=== PATIENT | male | born 1950 | race Caucasian/White ===

== ENCOUNTER → 2021-03-26 09:04 | Outpatient (BNVA) | payer OTHER, SELFPAY | PROVIDERS: PCP Hospitalist; Visit Provider Hospitalist ==

== ENCOUNTER → 2021-07-24 08:30 | Outpatient (BNVA) | payer OTHER, SELFPAY | PROVIDERS: PCP Hospitalist; Visit Provider Hospitalist ==

== ENCOUNTER 2023-10-20 08:26 | Outpatient (AMB) | payer OTHER, SELFPAY ==
--- NOTE | 2023-10-20 08:30 | A.OFFVIS_ITS ---
Intake Vital Signs 10/20/23 08:31 Height 5 ft 9 in Weight 178 lb BMI 26.3 Pulse 59 Pulse Source Pulse Oximeter Pulse Oximetry (%) 95 Oxygen Delivery Method Room Air Intake Visit Reasons: Obstructive sleep apnea Allergies No Known Allergies Allergy (Verified 10/20/23 08:32) HPI HPI Comments History of Present Illness Details The patient is a 72-year-old gentleman with known chronic severe insomnia in addition to severe obstructive sleep apnea with retrognathia. The patient has been CPAP therapy for many years very good effect. His current mask appears to be effective although still leak some air on the nose. The CPAP therapy has been affecting beneficial he does use it for more than 4 hours a ni ght. He is struggling with his weight and also his sleep. He is currently being evaluated for medical weight management. He is concerned because the trazodone is making him gain weight. Is also not effective for sleep. He still staying awake for hours when he takes the trazodone when the true mg Lunesta. Prior, he was taking 4.5 mg Lunesta which appeared to be very effective for him. He denies any retrograde amnesia he has not had any problems with Lunesta that he is aware of. I did talk about his potential risks additional side effects in a did to potentials to the medication. However, he feels is the only medications that was helpful. We did also talk about other medications such as Belsomra which also be potential medications the. While taking the Lunesta the patient knows that needs to take medication holidays specially to avoid the potential side effects. 07/24/2021 the patient is here for rani farley follow-up visit. Unfortunately, his insurance did not cover the higher dose Lunesta. Therefore he went back to the 3 mg. In the meantime he has been having difficulties with his insomnia. He has been taking 100 mg of trazodone which is partially effective. He is willing to increase it to 150 mg at this time. I am hoping that the higher dose trazodone along with 3 mg of Lunesta will be effective in providing better sleep quality. In the meantime explained to him that the medications by the cells when at work well if he does not participate in sleep behavior therapy. Otherwise he continues uses CPAP therapy. The CPAP therapy continues to be affecting beneficial. He is getting supplies regularly. He does use CPAP more than 4 hours a night. Otherwise patient is without any other complaints. He has been very excited about losing weight. His primary care doctor is helping with medical weight management which has been very effective for him and also lessening the stress on his knee joints and also on the breathing. 07/17/2022 the patient is here for pulivy zaragoza follow-up visit. He continues to struggle with his sleep. He continues on the Lunesta 3 mg at nighttime and also on trazodone 150 mg. Still, he does not respond as well as when he was taking the higher dose Lunesta. We did talk about other agents such as Belsomra. But at this point the patient does not want to change especially since he has tried medications in the past without any significant improvement. He also has been taking sildenafil at nighttime. Feels like he has a hard time sleeping after using sildenafil. He is going to try just taking half a dose of sildenafil to minimize the adverse effect. The patient has been using CPAP at nighttime. He is using the nasal pillows, P 10 with good effect. He does not like the head gear although I do feel that this is going to be the smallest had year that he will tolerate. Therefore he will continue using this mask for now. We did talk about other alternatives for CPAP including oral mandibular device. However, he did have a mandibular device that resulted in loosening of teeth and ultimately have been to have been replaced. He does continue to uses CPAP in the CPAP therapy has been affecting beneficial. He does use it for more than 4 hours a night. 10/20/2023 the patient is here for a pul [facility] follow-up visit. The patient continues to have same complaints. Still having issues with sleep. He does respond partially to the Lunesta in the trazodone combination. He gets about 5- 7 hours of sleep. Although, he still wakes up drowsy in the morning. The patient has been using the CPAP. The CPAP therapy has been affecting beneficial and he does have a comfortable mask. He does get supplies from his [employer] company. The patient only complains of some andres left over by the head gear. But otherwise he tolerates it well. We did talk about considering stimulants during daytime she continues to have persistent daytime drowsiness. Although, it will result in additional polypharmacy for him. He is interested in just continuing to do what he is doing right now the seems to be providing him some relief. He is wondering about a travel CPAP. Explained to him that those are available but did not cover through insurance. I can not give her some ideas. [facility] Medical History (Updated 03/26/21 @ 21:12 by Warren Wolfe MD) JOSE on CPAP Insomnia Social History (Updated 07/24/21 @ 08:40 by SAMMIE Peña) Patient Tobacco Use Status: Never used Tobacco Review of Systems Const Reports daytime sleepiness, Reports difficulty sleeping and Denies night sweats ENT Denies change in voice, Denies lip swelling, Denies mouth pain, Reports nasal congestion, Reports nasal discharge and Denies tongue swelling Card Denies chest pain Resp Reports cough GI Denies abdominal pain Musc Denies no additional complaints Neuro Denies Neuro-related abnormal movements Psych Denies no additional complaints Radhames/Lymph Denies easy bleeding and Denies lymphadenopathy Aller/Immun Denies lip swelling and Denies tongue swelling Physical Exam Vital Signs: Last Vital Signs Pulse 59 10/20/23 08:31 Pulse Ox 95 10/20/23 08:31 Oxygen Delivery Method Room Air 10/20/23 08:31 BMI result Body Mass Index 26.3 Const General: alert Eyes Pupils: Equal, round and reactive pupils present Neck Neck: Yes normal visual inspection, Yes full ROM and Yes no lymphadenopathy Chest Chest palpation & inspection: normal inspection of the chest Resp Auscultation: clear to auscultation bilaterally Cardio Rate: regular rate Rhythm: regular rhythm Heart sounds: S1 normal heart sound present and S2 normal heart sound present GI Palpation (GI): Soft to palpation and nontender Auscultation: normal bowel sounds Skin General skin exam: rashes and/or lesions noted Neuro Cranial nerves: Yes Equal, round and reactive pupils present Assessment & Plan Assessment & Plan (1) Insomnia: Code(s): G47.00 - Insomnia, unspecified Qualifiers: Insomnia type: primary Qualified Code(s): F51.01 - Primary insomnia (2) JOSE on CPAP: Code(s): G47.33 - Obstructive sleep apnea (adult) (pediatric); Z99.89 - Dependence on other enabling machines and devices Plan Sleep behavioral therapy continue Trazodone 150mg QHS continue Lunesta 3mg QHS Continue CPAP therapy, DME is [facility] it Follow-up in 1 year sooner if he develops any worsening symptoms F/U 12 months Coding Level of Care Code Est Pt Level 4 (19601) Diagnoses Primary insomnia F51.01 Insomnia type: primary JOSE on CPAP G47.33; Z99.89 Time Spent (min) 17
[2023-10-20 08:31] VITALS: PULSE 59; O2SAT 95; BMI 26.3
== END 2023-10-20 08:50 | disposition home or self-care (01) ==
PROVIDERS: PCP Hospitalist; Visit Provider Hospitalist
DX: F51.01 Primary insomnia (principal); G47.33 Obstructive sleep apnea (adult) (pediatric); Z99.89 Dependence on other enabling machines and devices
CPT/HCPCS: 99214

== ENCOUNTER → 2023-10-20 08:26 | Outpatient (BNVA) | payer OTHER, SELFPAY | PROVIDERS: PCP Hospitalist; Visit Provider Hospitalist ==

== ENCOUNTER 2024-10-12 08:46 | Outpatient (AMB) | payer OTHER, SELFPAY ==
--- NOTE | 2024-10-12 08:49 | A.OFFVIS_ITS ---
Vital Signs 10/12/24 08:51 Height 5 ft 9 in Weight 185 lb 3.013 oz BMI 27.3 BP 128/68 Blood Pressure Location Rt brachial Position Sitting Pulse 68 Pulse Source Pulse Oximeter Pulse Oximetry (%) 97 Oxygen Delivery Method Room Air Intake Visit Reasons: Obstructive sleep apnea Dental Claims Processor Required: No Recyclable Materials Collector: Recyclable Materials Collector offered & declined Accompanied by: Self / Same As Patient Allergies No Known Allergies Allergy (Verified 10/12/24 08:55) Medication List - Last Reconciled 10/12/24 by Porsche eMlton LPN celecoxib 200 mg PO DAILY cyclosporine 0.05% 1 drp ophthalmic (eye) BID eszopiclone 3 mg PO BEDTIME 90 days fluticasone propionate 50 mcg/actuation 2 sprays intranasal BID latanoprost 0.005% 1 drp ophthalmic (eye) BEDTIME liraglutide (weight loss) mg subcut lisinopril 10 mg PO DAILY oxycodone-acetaminophen 5-325 mg 1 tab PO BID PRN pravastatin 80 mg PO DAILY sildenafil 100 mg PO DAILY PRN suvorexant (Belsomra) 20 mg PO BEDTIME 10 days tadalafil mg PO trazodone 150 mg (3 x 50 mg) PO BEDTIME HPI Comments Details: The patient is a 73-year-old gentleman with known chronic severe insomnia in addition to severe obstructive sleep apnea with retrognathia. The patient has been CPAP therapy for many years very good effect. His current mask appears to be effective although still leak some air on the nose. The CPAP therapy has been affecting beneficial he does use it for more than 4 hours a night. He is struggling with his weight and also his sleep. He is currently being evaluated for medical weight management. He is concerned because the trazodone is making him gain weight. Is also not effective for sleep. He still staying awake for hours when he takes the trazodone when the true mg Lunesta. Prior, he was taking 4.5 mg Lunesta which appeared to be very effective for him. He denies any retrograde amnesia he has not had any problems with Lunesta that he is aware of. I did talk about his potential risks additional side effects in a did to potentials to the medication. However, he feels is the only medications that was helpful. We did also talk about other medications such as Belsomra which also be potential medications the. While taking the Lunesta the patient knows that needs to take medication holidays specially to avoid the potential side effects. 07/24/2021 the patient is here for pulmonary follow-up visit. Unfortunately, his insurance did not cover the higher dose Lunesta. Therefore he went back to the 3 mg. In the meantime he has been having difficulties with his insomnia. He has been taking 100 mg of trazodone which is partially effective. He is willing to increase it to 150 mg at this time. I am hoping that the higher dose trazodone along with 3 mg of Lunesta will be effective in providing better sleep quality. In the meantime explained to him that the medications by the cells when at work well if he does not participate in sleep behavior therapy. Otherwise he continues uses CPAP therapy. The CPAP therapy continues to be affecting beneficial. He is getting supplies regularly. He does use CPAP more than 4 hours a night. Otherwise patient is without any other complaints. He has been very excited about losing weight. His primary care doctor is helping with medical weight management which has been very effective for him and also lessening the stress on his knee joints and also on the breathing. 07/17/2022 the patient is here for pulmonary follow-up visit. He continues to struggle with his sleep. He continues on the Lunesta 3 mg at nighttime and also on trazodone 150 mg. Still, he does not respond as well as when he was taking the higher dose Lunesta. We did talk about other agents such as Belsomra. But at this point the patient does not want to change especially since he has tried medications in the past without any significant improvement. He also has been taking sildenafil at nighttime. Feels like he has a hard time sleeping after using sildenafil. He is going to try just taking half a dose of sildenafil to minimize the adverse effect. The patient has been using CPAP at nighttime. He is using the nasal pillows, P 10 with good effect. He does not like the head gear although I do feel that this is going to be the smallest had year that he will tolerate. Therefore he will continue using this mask for now. We did talk about other alternatives for CPAP including oral mandibular device. However, he did have a mandibular device that resulted in loosening of teeth and ultimately have been to have been replaced. He does continue to uses CPAP in the CPAP therapy has been affecting beneficial. He does use it for more than 4 hours a night. 10/20/2023 the patient is here for a pulmonary follow-up visit. The patient continues to have same complaints. Still having issues with sleep. He does respond partially to the Lunesta in the trazodone combination. He gets about 5- 7 hours of sleep. Although, he still wakes up drowsy in the morning. The patient has been using the CPAP. The CPAP therapy has been affecting beneficial and he does have a comfortable mask. He does get supplies from his [employer] company. The patient only complains of some andres left over by the head gear. But otherwise he tolerates it well. We did talk about considering stimulants during daytime she continues to have persistent daytime drowsiness. Although, it will result in additional polypharmacy for him. He is interested in just continuing to do what he is doing right now the seems to be providing him some relief. He is wondering about a travel CPAP. Explained to him that those are available but did not cover through insurance. I can not give her some ideas. 10/12/2024 the patient is here for a pulmonary follow-up visit. Overall he continues to do about the same. He is using the CPAP every night. CPAP therapy has been affecting beneficial. He does use [facility]. He does use a fullface mask. He is getting irritation on his nose. However he does want to change mask right now. If he continues to get worse he can always call [facility] or come here and we can help him set up with a different mask setting. The patient also has been using sleep aids. Prior she was taking 4.5 mg of Lunesta were excellent for him. Denied any evidence of any retrograde amnesia or any adverse effects. Then was no longer covered and he has been on 3 mg of Lunesta and also added trazodone to try to help with the significant severe insomnia. The patient would like to go back on the 4.5. I will send it again to see if is covered but it may not be so. In the meantime he continues to do okay from a respiratory status. He is playing golf and is also doing his yd chores. He has not had any issues with respiratory complaints. No cough or shortness breath. He does not have any imaging on record. At this point will hold off since he is doing well but if he develops any respiratory symptoms he can always call we can get additional imaging at that time. [facility] Medical History (Updated 03/26/21 @ 21:12 by Warren Wolfe MD) JOSE on CPAP Insomnia Social History Patient Tobacco Use Status: Never used Tobacco Review of Systems Const Reports daytime sleepiness, Reports difficulty sleeping and Denies night sweats ENT Denies change in voice, Denies lip swelling, Denies mouth pain, Reports nasal congestion, Reports nasal discharge and Denies tongue swelling Card Denies chest pain Resp Reports cough GI Denies abdominal pain Musc Denies no additional complaints Neuro Denies Neuro-related abnormal movements Psych Denies no additional complaints Radhames/Lymph Denies easy bleeding and Denies lymphadenopathy Aller/Immun Denies lip swelling and Denies tongue swelling Physical Exam Vital Signs: Last Vital Signs Pulse 68 10/12/24 08:51 BP 128/68 10/12/24 08:51 Pulse Ox 97 10/12/24 08:51 Oxygen Delivery Method Room Air 10/12/24 08:51 BMI result Body Mass Index 27.3 Const General: alert Eyes Pupils: Equal, round and reactive pupils present Neck Neck: Yes normal visual inspection, Yes full ROM and Yes no lymphadenopathy Chest Chest palpation & inspection: normal inspection of the chest Resp Auscultation: clear to auscultation bilaterally Cardio Rate: regular rate Rhythm: regular rhythm Heart sounds: S1 normal heart sound present and S2 normal heart sound present GI Palpation (GI): Soft to palpation and nontender Auscultation: normal bowel sounds Skin General skin exam: rashes and/or lesions noted Neuro Cranial nerves: Yes Equal, round and reactive pupils present Assessment & Plan Assessment & Plan (1) Insomnia: Code(s): G47.00 - Insomnia, unspecified Category: Medical Qualifiers: Insomnia type: primary Qualified Code(s): F51.01 - Primary insomnia (2) JOSE on CPAP: Code(s): G47.33 - Obstructive sleep apnea (adult) (pediatric); Z99.89 - Dependence on other enabling machines and devices Category: Medical Plan Sleep behavioral therapy continue Trazodone 150mg QHS increase Lunesta 4.5mg QHS Continue CPAP therapy, DME is [facility] it Follow-up in 1 year sooner if he develops any worsening symptoms F/U 12 months Medications: New eszopiclone (Lunesta) 4.5 mg (1.5 x 3 mg) PO BEDTIME 135 tabs 0RF 90 days Coding Level of Care Code Est Pt Level 4 (40372) Diagnoses Primary insomnia F51.01 Insomnia type: primary JOSE on CPAP G47.33; Z99.89 Time Spent (min) 16
[2024-10-12 08:51] VITALS: BP 128/68; PULSE 68; O2SAT 97; BMI 27.3
== END 2024-10-12 09:15 | disposition home or self-care (01) ==
PROVIDERS: PCP Hospitalist; Visit Provider Hospitalist
DX: F51.01 Primary insomnia (principal); G47.33 Obstructive sleep apnea (adult) (pediatric); Z99.89 Dependence on other enabling machines and devices
CPT/HCPCS: 99214

== ENCOUNTER → 2024-10-12 08:46 | Outpatient (BNVA) | payer OTHER, SELFPAY | PROVIDERS: PCP Hospitalist; Visit Provider Hospitalist ==

== ENCOUNTER 2025-10-04 08:40 | Outpatient (AMB) | payer OTHER, SELFPAY ==
--- OUTSIDE RECORDS SUMMARY | 2025-08-09 03:30 | XMS_ITS ---
Author Organization [employer] [facility] Address [address] [place] [address] Care Team Providers Care Human Resources Associate Name Role Phone KANDI JUAREZ Primary Care Provider [phone] REASON FOR VISIT Shingles Medications Medication SIG (Take, Route, Frequency, Duration) Notes Start Date End Date Status oxyCODONE-Acetaminop hen 5-325 MG 1 tablet Dx: M54.17 Orally Twice a day; Duration: 28 days As needed Partial Fill upon Patient Request 08/05/2025 Active guaiFENesin AC 100-10 MG/5ML 10 mL as needed Orally every 8 hrs; Duration: 7 days 01/20/2024 Not-Taking Benzonatate 200 MG 1 capsule Orally Three times a day; Duration: 7 days 01/23/2024 Not-Taking Saxenda 18 MG/3ML inject 3 mg Subcutaneous once a day; Duration: 30 days Not-Taking Multivitamin - 1 tablet Orally Once a day (no iron) Active Narcan 4 MG/0.1ML PRN Overdose Nasally once; Duration: 30 days 04/16/2019 Not-Taking Vitamin B-1 100 MG 1 tablet Orally Once a day; Duration: 30 day(s) Not-Taking Vitamin B12 one daily Not-Taki ng Fluticasone Propionate 50 MCG/ACT 1 spray in each nostril Nasally Twice a day; Duration: 90 days Active BD Pen Needle Mini U/F 31G X 5 MM INJECT SAXENDA SUBCUTANEOUSLY EVERY DAY DIRECTED; Duration: 30 Not-Taking Lisinopril 10 MG TAKE 1 TABLET BY MOUTH EVERY DAY; Duration: 90 Active Celecoxib 200 MG 2 capsules with food Orally Once a day; Duration: 90 days Active Hydrocortisone 2.5 % 1 application Externally Once a day; Duration: 30 day(s) 09/02/2022 Active Pravastatin Sodium 80 MG TAKE 1 TABLET BY MOUTH EVERY DAY; Duration: 90 Active Magnesium 250 MG 1 capsule with a meal Active traZODone HCl 100 MG 1 tablet at bedtime Orally Once a day (along with a 50 mg tablet) Dr Wolfe Active Viagra 100 MG 1 tablet as needed Orally Once a day; Duration: 30 day(s) Active Vitamin D3 2000 UNIT 1 capsule Orally Once a day; Duration: 30 day(s) Active Restasis 0.05 % 1 drop into affected eye Ophthalmic Once a day Active Ecotrin Low Strength 81 MG 1 tablet Orally Once a day; Duration: 30 day(s) Active Pataday 0.2 % as directed Ophthalmic Active Latanoprost 0.005 % 1 drop into affected eye in the evening Ophthalmic Once a day Active Lansing 3 1200 MG 1 capsule Orally Once a day; Duration: 30 day(s) Active Co Q-10 200 MG 1 capsule with a meal Orally Once a day; Duration: 30 day(s) Active Eszopiclone 3 MG 1 tablet immediately before bedtime Orally Once a day Dr Wolfe Active Encounters Encounter Location Date Provider Diagnosis [address] [address] 08/09/2025 KNADI JUAREZ Plan Of Treatment Next Appt Details Provider Name:KANDI JUAREZ , 11/04/2025 09:00:00 AM, [address] [place] [address], [place], [address], Progress Notes * Justo TELLEZ WDOB:1950 (74 yo M)Acc No.[id number]:08/09/2025 Progress Note Patient: Justo WHITE Provider: Rocky JUAREZ MD :1950 A ge:74 Y S ex:Male Date:08/09/2025 Address:[address] [place] [id number] Subjective: * Chief Complaints: * 1 . Shingles. * Medical History: * Medications: T aking Multivitamin - Tablet 1 tablet Orally Once a day , Notes to Pharmacist: (no iron), Taking Co Q-10 200 MG Capsule 1 capsule with a meal Orally Once a day , Taking Eszopiclone 3 MG Tablet 1 tablet immediately before bedtime Orally Once a day , Notes to Pharmacist: Dr Wolfe, Taking Latanoprost 0.005 % Solution 1 drop into affected eye in the evening Ophthalmic Once a day , Taking Lansing 3 1200 MG Capsule 1 capsule Orally Once a day , Taking Pataday 0.2 % Solution as directed Ophthalmic , Taking Restasis 0.05 % Emulsion 1 drop into affected eye Ophthalmic Once a day , Taking Viagra 100 MG Tablet 1 tablet as needed Orally Once a day , Taking Vitamin D3 2000 UNIT Capsule 1 capsule Orally Once a day , Taking traZODone HCl 100 MG Tablet 1 tablet at bedtime Orally Once a day (along with a 50 mg tablet) , Notes to Pharmacist: Dr Wolfe, Taking Ecotrin Low Strength 81 MG Tablet Delayed Release 1 tablet Orally Once a day , Taking Magnesium 250 MG Tablet 1 capsule with a meal , Taking Hydrocortisone 2.5 % Ointment 1 application Externally Once a day , Taking Pravastatin Sodium 80 MG Tablet TAKE 1 TABLET BY MOUTH EVERY DAY , Taking Lisinopril 10 MG Tablet TAKE 1 TABLET BY MOUTH EVERY DAY , Taking Celecoxib 200 MG Capsule 2 capsules with food Orally Once a day , Taking Fluticasone Propionate 50 MCG/ACT Suspension 1 spray in each nostril Nasally Twice a day , Taking oxyCODONE-Acetaminophen 5-325 MG Tablet 1 tablet Dx: M54.17 Orally Twice a day As needed, Notes to Pharmacist: Partial Fill upon Patient Request, Not-Taking BD Pen Needle Mini U/F 31G X 5 MM Miscellaneous INJECT SAXENDA SUBCUTANEOUSLY EVERY DAY DIRECTED , Not-Taking Vitamin B-1 100 MG Tablet 1 tablet Orally Once a day , Not-Taking Vitamin B12 , Notes to Pharmacist: one daily, Not-Taking Narcan 4 MG/0.1ML Liquid PRN Overdose Nasally once , Not-Taking Saxenda 18 MG/3ML Solution Pen- injector inject 3 mg Subcutaneous once a day , Not-Taking guaiFENesin AC 100-10 MG/5ML Syrup 10 mL as needed Orally every 8 hrs , Not-Taking Benzonatate 200 MG Capsule 1 capsule Orally Three times a day Objective: * Vitals: Assessment: Plan: * Treatment: * Images: * Electronic signature of ANAMARIA JUAREZ MD on 10/04/2025 at 09:06 AM EST Sign off status: Pending * Provider: Rocky JUAREZ MD Date: 0 08/09/2025 Generated for Jairon belle/Jignesh/Agus on: 1 12/04/2024 09:06 AM EST
--- OUTSIDE RECORDS SUMMARY | 2025-09-29 05:30 | XMS_ITS ---
Author Organization [employer] Address [address] [place] [address] Care Team Providers [employer] Distributor Name Role Phone KANDI JUAREZ Primary Care Provider Virgil Moreira Unavailable [phone] Allergies Allergen (clinical drug ingredient) Drug/Non Drug Allergy documented on EMR Reaction Allergy Type Onset Date Status seasonal (uncoded) Unknown Allergy A ctive Results Component Value Reference Range Notes CBC With Differential/Platel et-[id number] Reviewed date:09/30/2025 09:08:34 AM Interpretation: Performing Lab:[facility], [address] [place] [address], [place], Phone - [phone], Director - Hang Notes/Report: WBC 8.8 3.4-10.8 x10E3/uL RBC 4.97 4.14-5.80 x10E6/uL Hemoglobin 14.8 13.0-17.7 g/dL Hematocrit 45.0 37.5-51.0 % MCV 91 79-97 fL MCH 29.8 26.6-33.0 pg MCHC 32.9 31.5-35.7 g/dL RDW 12.6 11.6-15.4 % Platelets 217 150-450 x10E3/uL Neutrophils 66 Not Estab. % Lymphs 22 Not Estab. % Monocytes 7 Not Estab. % Eos 3 Not Estab. % Basos 1 Not Estab. % Neutrophils (Absolute) 5.9 1.4-7.0 x10E3/uL Lymphs (Absolute) 2.0 0.7-3.1 x10E3/uL Monocytes(Absolute) 0.7 0.1-0.9 x10E3/uL Eos (Absolute) 0.2 0.0-0.4 x10E3/uL Baso (Absolute) 0.1 0.0-0.2 x10E3/uL Immature Granulocytes 1 Not Estab. % Immature Grans (Abs) 0.1 0.0-0.1 x10E3/uL Comp. Metabolic Panel [id number] Reviewed date:09/30/2025 09:08:21 AM Interpretation: Performing Lab:[facility], [address], [place], Phone - [phone], Director - Hang Notes/Report: Glucose 87 70-99 mg/dL BUN 20 8-27 mg/dL Creatinine 0.93 0.76-1.27 mg/dL eGFR 86 >59 mL/min/1.73 BUN/Creatinine Ratio 22 10-24 Sodium 140 134-144 mmol/L Potassium 4.0 3.5-5.2 mmol/L Chloride 100 96-106 mmol/L Carbon Dioxide, Total 24 20-29 mmol/L Calcium 9.4 8.6-10.2 mg/dL Protein, Total 7.3 6.0-8.5 g/dL Albumin 4.8 3.8-4.8 g/dL Globulin, Total 2.5 1.5-4.5 g/dL Bilirubin, Total 0.7 0.0-1.2 mg/dL Alkaline Phosphatase 58 47-123 IU/L AST (SGOT) 20 0-40 IU/L REASON FOR VISIT [facility] Total Knee Replacement 10/17/25 EKG/LABS Required Medications Medication SIG (Take, Route, Frequency, Duration) Notes Start Date End Date Status Viagra 100 MG 1 tablet as needed Orally Once a day; Duration: 30 day(s) Active Restasis 0.05 % 1 drop into affected eye Ophthalmic Once a day Active Pataday 0.2 % as directed Ophthalmic Active Campbell 3 1200 MG 1 capsule Orally Once a day; Duration: 30 day(s) Active Latanoprost 0.005 % 1 drop into affected eye in the evening Ophthalmic Once a day Active oxyCODONE-Acetaminop hen 5-325 MG 1 tablet Dx: M54.17 Orally 3 times a day; Duration: 28 days As needed Partial Fill upon Patient Request 09/29/2025 Active Eszopiclone 3 MG 1 tablet immediately before bedtime Orally Once a day Dr Wolfe Active Benzonatate 200 MG 1 capsule Orally Three times a day; Duration: 7 days 01/23/2024 Not-Taking Co Q-10 200 MG 1 capsule with a meal Orally Once a day; Duration: 30 day(s) Active Multivitamin - 1 tablet Orally Once a day (no iron) Active Vitamin B12 one daily Not-Taki ng Vitamin B-1 100 MG 1 tablet Orally Once a day; Duration: 30 day(s) Not-Taking guaiFENesin AC 100-10 MG/5ML 10 mL as needed Orally every 8 hrs; Duration: 7 days 01/20/2024 Not-Taking Saxenda 18 MG/3ML inject 3 mg Subcutaneous once a day; Duration: 30 days Not-Taking Narcan 4 MG/0.1ML PRN Overdose Nasally once; Duration: 30 days 04/16/2019 Not-Taking BD Pen Needle Mini U/F 31G X 5 MM INJECT SAXENDA SUBCUTANEOUSLY EVERY DAY DIRECTED; Duration: 30 Not-Taking Fluticasone Propionate 50 MCG/ACT 1 spray in each nostril Nasally Twice a day; Duration: 90 days Active Celecoxib 200 MG 2 capsules with food Orally Once a day; Duration: 90 days Active Lisinopril 10 MG TAKE 1 TABLET BY MOUTH EVERY DAY; Duration: 90 Active Pravastatin Sodium 80 MG TAKE 1 TABLET BY MOUTH EVERY DAY; Duration: 90 Active traZODone HCl 100 MG 1 tablet at bedtime Orally Once a day (along with a 50 mg tablet) Dr Wolfe Active Vitamin D3 2000 UNIT 1 capsule Orally Once a day; Duration: 30 day(s) Active Hydrocortisone 2.5 % 1 application Externally Once a day; Duration: 30 day(s) 09/02/2022 Active Magnesium 250 MG 1 capsule with a meal Active Ecotrin Low Strength 81 MG 1 tablet Orally Once a day; Duration: 30 day(s) Not-Taking Social History Tobacco Use: Social History Observation Description Date Details (start date - stop date) Never Smoker NA - NA Tobacco Use/Smoking Question Answer Notes Are you a nonsmoker Alcohol Screen (Audit-C) Question Answer Notes Did you have a drink contain ing alcohol in the past year? Yes How often did you have a dri nk containing alcohol in the past year? Monthly or less (1 point) How many drinks did you have on a typical day when you were drinking in the past year? 1 or 2 drinks (0 point) Points 1 Interpretation Negative Vital Signs Temperature 97.5 degrees Fahrenheit 09/29/20 25 Oximetry 95 % 09/29/2025 Heart Rate 72 /min 09/29/2025 Blood pressure systolic 130 mm Hg 09/29/20 25 Blood pressure diastolic 80 mm Hg 025 Weight 185.6 lbs 09/29/2025 BMI 27.41 kg/m2 09/29/2025 Height 69 in 09/29/2025 Encounters Encounter Location Date Provider Diagnosis [facility] [address] [facility] [facility] [address] [place] [address] 09/29/2025 Virgil Estradajocelinefavian Essential (primary) hypertension I10 ; Preoperative clearance Z01.818 ; Mixed hyperlipidemia E78.2 ; Obstructive sleep apnea (adult) (pediatric) G47.33 and Radiculopathy, lumbosacral region M54.17 Assessments Encounter Date Diagnosis (ICD Code) Assessment Notes Treatment Notes Treatment Clinical Notes Section Notes 09/29/2025 Essential (primary) hypertension (ICD-10 - I10) Mr. Tellez is a 74-year-old gentleman with hypertension, hyperlipidemia ,JOSE, chronic insomnia, glaucoma, multiple joint osteoarthritis and follows up with orthopedic for intra-articular injection, personal history of prostate cancer, allergic rhinitis/seasonal allergies is here today for Preop for left knee replacement at [facility] with Dr. Walton on October 17, 2025. Plan follow Cardiac assessment. Patient can easily do 4 METS. Blood pressure and exam is within normal limits. EKG is done in the office today with a heart rate of 65 bpm, sinus rhythm. No ST elevation or depression. No bundle branch block Pulmonary assessment. Lung exam is normal. No further Intervention He does have history of obstructive sleep apnea and he is on CPAP NPO on the day of surgery. Take your medications after the surgery. Hold NSAIDs and Campbell supplement 5 days before the procedure. Low risk procedure in a low risk patient. No contraindications for the procedure at this point in time Place in order for CBC and comp to be reviewed Hypertension/hyperl ipidemia. Blood pressure well controlled on lisinopril 10 mg daily and he is also on pravastatin 80 mg. Check lipid panel, renal function, electrolytes and urine albumin/creatinine ratio. Obstructive sleep apnea. He is using CPAP machine on a regular basis and no daytime sleepiness. Chronic insomnia. He is on Lunesta and trazodone 100 mg daily at bedtime and he follows up with Dr. Wolfe. Glaucoma. He stable and he follows up with office inspector on a regular basis. Degenerative disc disease/multiple joint osteoarthritis. He goes to orthopedics for intra-articular injection and we prescribe oxycodone 5/325 mg 1 tablet 2 times a day. It will be increased just for this months to 3 times a day and then after he will resume on twice a day. He is on controlled substance contract. I have spent over 20 minutes in the room with the patient. General concerns have been discussed I have rendered the services for this patient under direct supervision of Dr. Juarez, who did not see the patient but was available upon request Content of this note has been dictated using voice recognition software. Despite multiple revisions, Errors may persist 09/29/2025 Preoperative clearance (ICD-10 - Z01.818) Mr. Tellez is a 74-year-old gentleman with hypertension, hyperlipidemia ,JOSE, chronic insomnia, glaucoma, multiple joint osteoarthritis and follows up with orthopedic for intra-articular injection, personal history of prostate cancer, allergic rhinitis/seasonal allergies is here today for Preop for left knee replacement at [facility] with Dr. Walton on October 17, 2025. Plan follow Cardiac assessment. Patient can easily do 4 METS. Blood pressure and exam is within normal limits. EKG is done in the office today with a heart rate of 65 bpm, sinus rhythm. No ST elevation or depression. No bundle branch block Pulmonary assessment. Lung exam is normal. No further Intervention He does have history of obstructive sleep apnea and he is on CPAP NPO on the day of surgery. Take your medications after the surgery. Hold NSAIDs and Campbell supplement 5 days before the procedure. Low risk procedure in a low risk patient. No contraindications for the procedure at this point in time Place in order for CBC and comp to be reviewed Hypertension/hyperl ipidemia. Blood pressure well controlled on lisinopril 10 mg daily and he is also on pravastatin 80 mg. Check lipid panel, renal function, electrolytes and urine albumin/creatinine ratio. Obstructive sleep apnea. He is using CPAP machine on a regular basis and no daytime sleepiness. Chronic insomnia. He is on Lunesta and trazodone 100 mg daily at bedtime and he follows up with Dr. Wolfe. Glaucoma. He stable and he follows up with office inspector on a regular basis. Degenerative disc disease/multiple joint osteoarthritis. He goes to orthopedics for intra-articular injection and we prescribe oxycodone 5/325 mg 1 tablet 2 times a day. It will be increased just for this months to 3 times a day and then after he will resume on twice a day. He is on controlled substance contract. I have spent over 20 minutes in the room with the patient. General concerns have been discussed I have rendered the services for this patient under direct supervision of Dr. Juarez, who did not see the patient but was available upon request Content of this note has been dictated using voice recognition software. Despite multiple revisions, Errors may persist 09/29/2025 Mixed hyperlipidemia (ICD-10 - E78.2) Mr. Tellez is a 74-year-old gentleman with hypertension, hyperlipidemia ,JOSE, chronic insomnia, glaucoma, multiple joint osteoarthritis and follows up with orthopedic for intra-articular injection, personal history of prostate cancer, allergic rhinitis/seasonal allergies is here today for Preop for left knee replacement at [facility] with Dr. Walton on October 17, 2025. Plan follow Cardiac assessment. Patient can easily do 4 METS. Blood pressure and exam is within normal limits. EKG is done in the office today with a heart rate of 65 bpm, sinus rhythm. No ST elevation or depression. No bundle branch block Pulmonary assessment. Lung exam is normal. No further Intervention He does have history of obstructive sleep apnea and he is on CPAP NPO on the day of surgery. Take your medications after the surgery. Hold NSAIDs and Campbell supplement 5 days before the procedure. Low risk procedure in a low risk patient. No contraindications for the procedure at this point in time Place in order for CBC and comp to be reviewed Hypertension/hyperl ipidemia. Blood pressure well controlled on lisinopril 10 mg daily and he is also on pravastatin 80 mg. Check lipid panel, renal function, electrolytes and urine albumin/creatinine ratio. Obstructive sleep apnea. He is using CPAP machine on a regular basis and no daytime sleepiness. Chronic insomnia. He is on Lunesta and trazodone 100 mg daily at bedtime and he follows up with Dr. Wolfe. Glaucoma. He stable and he follows up with office inspector on a regular basis. Degenerative disc disease/multiple joint osteoarthritis. He goes to orthopedics for intra-articular injection and we prescribe oxycodone 5/325 mg 1 tablet 2 times a day. It will be increased just for this months to 3 times a day and then after he will resume on twice a day. He is on controlled substance contract. I have spent over 20 minutes in the room with the patient. General concerns have been discussed I have rendered the services for this patient under direct supervision of Dr. Juarez, who did not see the patient but was available upon request Content of this note has been dictated using voice recognition software. Despite multiple revisions, Errors may persist 09/29/2025 Obstructive sleep apnea (adult) (pediatric) (ICD-10 - G47.33) Mr. Tellez is a 74-year-old gentleman with hypertension, hyperlipidemia ,JOSE, chronic insomnia, glaucoma, multiple joint osteoarthritis and follows up with orthopedic for intra-articular injection, personal history of prostate cancer, allergic rhinitis/seasonal allergies is here today for Preop for left knee replacement at [facility] with Dr. Walton on October 17, 2025. Plan follow Cardiac assessment. Patient can easily do 4 METS. Blood pressure and exam is within normal limits. EKG is done in the office today with a heart rate of 65 bpm, sinus rhythm. No ST elevation or depression. No bundle branch block Pulmonary assessment. Lung exam is normal. No further Intervention He does have history of obstructive sleep apnea and he is on CPAP NPO on the day of surgery. Take your medications after the surgery. Hold NSAIDs and Campbell supplement 5 days before the procedure. Low risk procedure in a low risk patient. No contraindications for the procedure at this point in time Place in order for CBC and comp to be reviewed Hypertension/hyperl ipidemia. Blood pressure well controlled on lisinopril 10 mg daily and he is also on pravastatin 80 mg. Check lipid panel, renal function, electrolytes and urine albumin/creatinine ratio. Obstructive sleep apnea. He is using CPAP machine on a regular basis and no daytime sleepiness. Chronic insomnia. He is on Lunesta and trazodone 100 mg daily at bedtime and he follows up with Dr. Wolfe. Glaucoma. He stable and he follows up with office inspector on a regular basis. Degenerative disc disease/multiple joint osteoarthritis. He goes to orthopedics for intra-articular injection and we prescribe oxycodone 5/325 mg 1 tablet 2 times a day. It will be increased just for this months to 3 times a day and then after he will resume on twice a day. He is on controlled substance contract. I have spent over 20 minutes in the room with the patient. General concerns have been discussed I have rendered the services for this patient under direct supervision of Dr. Juarez, who did not see the patient but was available upon request Content of this note has been dictated using voice recognition software. Despite multiple revisions, Errors may persist 09/29/2025 Radiculopathy, lumbosacral region (ICD-10 - M54.17) Mr. Tellez is a 74-year-old gentleman with hypertension, hyperlipidemia ,JOSE, chronic insomnia, glaucoma, multiple joint osteoarthritis and follows up with orthopedic for intra-articular injection, personal history of prostate cancer, allergic rhinitis/seasonal allergies is here today for Preop for left knee replacement at [facility] with Dr. Walton on October 17, 2025. Plan follow Cardiac assessment. Patient can easily do 4 METS. Blood pressure and exam is within normal limits. EKG is done in the office today with a heart rate of 65 bpm, sinus rhythm. No ST elevation or depression. No bundle branch block Pulmonary assessment. Lung exam is normal. No further Intervention He does have history of obstructive sleep apnea and he is on CPAP NPO on the day of surgery. Take your medications after the surgery. Hold NSAIDs and Campbell supplement 5 days before the procedure. Low risk procedure in a low risk patient. No contraindications for the procedure at this point in time Place in order for CBC and comp to be reviewed Hypertension/hyperl ipidemia. Blood pressure well controlled on lisinopril 10 mg daily and he is also on pravastatin 80 mg. Check lipid panel, renal function, electrolytes and urine albumin/creatinine ratio. Obstructive sleep apnea. He is using CPAP machine on a regular basis and no daytime sleepiness. Chronic insomnia. He is on Lunesta and trazodone 100 mg daily at bedtime and he follows up with Dr. Wolfe. Glaucoma. He stable and he follows up with office inspector on a regular basis. Degenerative disc disease/multiple joint osteoarthritis. He goes to orthopedics for intra-articular injection and we prescribe oxycodone 5/325 mg 1 tablet 2 times a day. It will be increased just for this months to 3 times a day and then after he will resume on twice a day. He is on controlled substance contract. I have spent over 20 minutes in the room with the patient. General concerns have been discussed I have rendered the services for this patient under direct supervision of Dr. Juarez, who did not see the patient but was available upon request Content of this note has been dictated using voice recognition software. Despite multiple revisions, Errors may persist Plan Of Treatment Medication Medication Name Sig Start Date Stop Date Notes oxyCODONE-Acetaminophen 5-325 MG 1 tablet Dx: M54.17 Orally 3 times a day; Duration: 28 days 09/29/2025 Partial Fill upon Patient Request Next Appt Details Follow Up: next appt, Reason : Provider Name:KANDI JUAREZ , 11/04/2025 09:00:00 AM, [address] [place] [address], [id number], Progress Notes * Justo TELLEZ WDOB:1950 (74 yo M)Acc No.[id number]:09/29/2025 Progress Note Patient: Justo WHITE Appointment Provider: Juanito Moreira :1950 A ge:74 Y S ex:Male Supervising Provider:KANDI JUAREZ MD Date:09/29/2025 Address:[address] [place], [place] [id number] Pcp:KANDI JUAREZ Subjective: * Chief Complaints: * [facility] Total Knee Replacement 10/17/25 EKG/LABS Required * HPI: I nternal Medicine: Mr. Tellez is a 74-year-old gentleman with hypertension, hyperlipidemia,JOSE, chronic insomnia, glaucoma, multiple joint osteoarthritis and follows up with orthopedic for intra-articular injection, personal history of prostate cancer, allergic rhinitis/seasonal allergies is here today for PRE-OP CLEARANCE FOR TOTAL LEFT KNEE REPLACEMENT with Dr. De Los Santos at [facility] on 10/17/2025. He is able to do 4 cardiac mets without CP, SOB, GALVAN. He is not on blood thinner, he is taking omega supplement. He does not use NSAIDs. He uses CPAP. He is inquiring today about the possibility of increasing oxycodone acetaminophen to 3 times a day just for this months until he gets his surgery. No other active issues. * ROS: G eneral/Constitutional: Overall health G ood. C hange in appetite d enies.?Chills d enies. F ever d enies. N ight sweats d enies. S leep disturbance d enies. W eight gain d enies. W eight loss d enies. N eurologic: Difficulty speaking d enies. D izziness d enies.?Gait abnormality d enies. H eadache d enies. L oss of strength d enies. M melissa loss d enies. S eizures d enies. T ingling/Numbness d enies . O phthalmologic: Blurred vision d enies. D ischarge d enies. D ry eye d enies. R ed eye d enies. E NT: Change in Voice D enies. C old Symptoms , Denies.?Cough D enies. D izziness D enies. N milo Congestion D enies. O talgia?Denies. p ostnasal drip D enies. B locked ear d enies. N osebleed d enies. S noring d enies. C ardiovascular: Diaphoresis D enies. P edal Edema D enies. P ND (Paroxsymal nocturnal dyspnea) D enies. C hest pain d enies. D ifficulty laying flat d enies. D yspnea on exertion d enies. H eart murmur d enies. O rthopnea?denies. R espiratory: Snoring d enies. A sthma d enies. C ough d enies. S hortness of breath with exertion d enies. S putum production d enies. W heezing d enies. G astrointestinal: Change in bowel habits d enies. C onstipation d enies. D ecreased appetite d enies. D iarrhea d enies. H eartburn d enies. N ausea d enies. V omiting d enies. M usculoskeletal: tingling/numbness D enies. m yalgias D enies. J oint Swelling D enies. e xtremeties n ormal. A rthritis , admits. B ack problems d enies. C arpal tunnel d enies. J oint stiffness d enies.?Muscle aches d enies. E ndocrine: Bowel Changes D enies. B reast Discharge D enies.?poor libido D enies. C old intolerance d enies. E xcessive sweating d enies.?Excessive thirst d enies. F requent urination d enies. T hyroid problems d enies. S kin: Bruising D enies. E czema d enies. H air changes d enies. R michell d enies. S kin lesion(s) d enies. P sychiatric: Anxiety d enies. D epressed mood d enies. D ifficulty sleeping d enies. N ervous breakdown d enies. S ubstance abuse d enies.? U rology: abnormal menstrual bleeding d enies. b lood in urine?denies. b urning on urination d enies. d ifficulty urinating d enies. d ischarge d enies. d ysuria d enies. * Medical History: * Surgical History: c ervical fusion right knee surgery prostate surgery umbilical hernia repair left knee arthroscopy * Hospitalization/Major Diagno stic Procedure: * Family History: F ather: , glaucoma, prostate cancer, diagnosed with Hypertension, Heart Disease. M other: , glaucoma, emphysema, diagnosed with Hypertension, Heart Disease. * Social History: T obacco Use: T obacco Use/Smoking A re you a n onsmoker D rugs/Alcohol: D rugs H ave you used drugs other than those for medical reasons in the past 12 months? N o Alcohol Screen (Audit-C) D id you have a drink containing alcohol in the past year? Y es H ow often did you have a drink containing alcohol in the past year? M onthly or less (1 point) H ow many drinks did you have on a typical day when you were drinking in the past year? 1 or 2 drinks (0 point) P oints 1 I nterpretation N egative * Medications: T akingMultivitamin - Tablet 1 tablet Orally Once a day , Notes to Pharmacist: (no iron)Co Q-10 200 MG Capsule 1 capsule with a meal Orally Once a day Eszopiclone 3 MG Tablet 1 tablet immediately before bedtime Orally Once a day , Notes to Pharmacist: Dr Robertstanoprost 0.005 % Solution 1 drop into affected eye in the evening Ophthalmic Once a day Campbell 3 1200 MG Capsule 1 capsule Orally Once a day Pataday 0.2 % Solution as directed Ophthalmic Restasis 0.05 % Emulsion 1 drop into affected eye Ophthalmic Once a day Viagra 100 MG Tablet 1 tablet as needed Orally Once a day Vitamin D3 2000 UNIT Capsule 1 capsule Orally Once a day traZODone HCl 100 MG Tablet 1 tablet at bedtime Orally Once a day (along with a 50 mg tablet) , Notes to Pharmacist: Dr Frankelesium 250 MG Tablet 1 capsule with a meal Hydrocortisone 2.5 % Ointment 1 application Externally Once a day Pravastatin Sodium 80 MG Tablet TAKE 1 TABLET BY MOUTH EVERY DAY Lisinopril 10 MG Tablet TAKE 1 TABLET BY MOUTH EVERY DAY Celecoxib 200 MG Capsule 2 capsules with food Orally Once a day oxyCODONE-Acetaminophen 5-325 MG Tablet 1 tablet Dx: M54.17 Orally Twice a day As needed, Notes to Pharmacist: Partial Fill upon Patient RequestFluticasone Propionate 50 MCG/ACT Suspension 1 spray in each nostril Nasally Twice a day Taking Multivitamin - Tablet 1 tablet Orally Once a day , Notes to Pharmacist: (no iron)Taking Co Q- 10 200 MG Capsule 1 capsule with a meal Orally Once a day Taking Eszopiclone 3 MG Tablet 1 tablet immediately before bedtime Orally Once a day , Notes to Pharmacist: Dr Gaitan Latanoprost 0.005 % Solution 1 drop into affected eye in the evening Ophthalmic Once a day Taking Campbell 3 1200 MG Capsule 1 capsule Orally Once a day Taking Pataday 0.2 % Solution as directed Ophthalmic Taking Restasis 0.05 % Emulsion 1 drop into affected eye Ophthalmic Once a day Taking Viagra 100 MG Tablet 1 tablet as needed Orally Once a day Taking Vitamin D3 2000 UNIT Capsule 1 capsule Orally Once a day Taking traZODone HCl 100 MG Tablet 1 tablet at bedtime Orally Once a day (along with a 50 mg tablet) , Notes to Pharmacist: Dr Gaitan Magnesium 250 MG Tablet 1 capsule with a meal Taking Hydrocortisone 2.5 % Ointment 1 application Externally Once a day Taking Pravastatin Sodium 80 MG Tablet TAKE 1 TABLET BY MOUTH EVERY DAY Taking Lisinopril 10 MG Tablet TAKE 1 TABLET BY MOUTH EVERY DAY Taking Celecoxib 200 MG Capsule 2 capsules with food Orally Once a day Taking oxyCODONE-Acetaminophen 5-325 MG Tablet 1 tablet Dx: M54.17 Orally Twice a day As needed, Notes to Pharmacist: Partial Fill upon Patient RequestTaking Fluticasone Propionate 50 MCG/ACT Suspension 1 spray in each nostril Nasally Twice a day Not-TakingEcotrin Low Strength 81 MG Tablet Delayed Release 1 tablet Orally Once a day BD Pen Needle Mini U/F 31G X 5 MM Miscellaneous INJECT SAXENDA SUBCUTANEOUSLY EVERY DAY DIRECTED Vitamin B-1 100 MG Tablet 1 tablet Orally Once a day Vitamin B12 , Notes to Pharmacist: one dailyNarcan 4 MG/0.1ML Liquid PRN Overdose Nasally once Saxenda 18 MG/3ML Solution Pen-injector inject 3 mg Subcutaneous once a day guaiFENesin AC 100-10 MG/5ML Syrup 10 mL as needed Orally every 8 hrs Benzonatate 200 MG Capsule 1 capsule Orally Three times a day Not-Taking Ecotrin Low Strength 81 MG Tablet Delayed Release 1 tablet Orally Once a day Not-Taking BD Pen Needle Mini U/F 31G X 5 MM Miscellaneous INJECT SAXENDA SUBCUTANEOUSLY EVERY DAY DIRECTED Not-Taking Vitamin B-1 100 MG Tablet 1 tablet Orally Once a day Not-Taking Vitamin B12 , Notes to Pharmacist: one dailyNot-Taking Narcan 4 MG/0.1ML Liquid PRN Overdose Nasally once Not-Taking Saxenda 18 MG/3ML Solution Pen-injector inject 3 mg Subcutaneous once a day Not-Taking guaiFENesin AC 100-10 MG/5ML Syrup 10 mL as needed Orally every 8 hrs Not-Taking Benzonatate 200 MG Capsule 1 capsule Orally Three times a day * Allergies: s easonal: Allergyno[Allergies Verified] Objective: * Vitals: T emp:97.5F, Oxygen sat %:95%, HR:72/min, BP:130/80mm Hg, Wt:185.6lbs, BMI:27.41Index, Ht: 69 in. * P ast Orders: Lab:Albumin/Creatinine Ratio ,Urine-[id number] * Collection Date 08/06/2025 10/13/2024 Collection Time 08:18 AM 07:34 AM Order Date 07/05/2025 07/01/2024 Creatinine, Urine 177.0 (Ref Range: Not Estab. mg/dL) 126.8 (Ref Range: Not Estab. mg/dL) Albumin, Urine 6.7 (Ref Range: Not Estab. ug/mL) <3.0 (Ref Range: Not Estab. ug/mL) Alb/Creat Ratio 4 (Ref Range: 0-29 mg/g creat) <2 (Ref Range: 0-29 mg/g creat) ???Lab:Lipid Panel-[id number] (Order Date - 07/05/2025) (Collection Date & Time - 08/06/2025 08:18 AM)?ValueReference Range?Cholesterol, Qhkbp934H 100-199 - mg/dL?Ceymwggtncxhn880-403 - mg/dL?HDL Occmxvnveop23>39 - mg/dL?VLDL Cholesterol Vhu203-87 - mg/dL?LDL Chol Calc ([facility])139H 0-99 - mg/dL ???Lab:Comp. Metabolic Panel [id number] (Order Date - 07/05/2025) (Collection Date & Time - 08/06/2025 08:18 AM)?ValueReference Range?Tosgxvm79 70-99 - mg/dL?LDU189-47 - mg/dL?Creatinine0.870.76-1.27 - mg/dL ?BUN/Creatinine Mikof44L21-34 -?Zbtsyc958902-898 - mmol/L ?Potassium4.03.5-5.2 - mmol/L?Gzntpemc82240-527 - mmol/L ?Carbon Dioxide, Cdynu53L92-16 - mmol/L?Calcium9.68.6-10.2 - mg/dL ?Protein, Total6.86.0-8.5 - g/dL?Albumin4.73.8-4.8 - g/dL ?Globulin, Total2.11.5-4.5 - g/dL?Bilirubin, Total1.3H0.0-1.2 - mg/dL?Alkaline Qktskuaseek9696-255 - IU/L?AST (SGOT)190-40 - IU/L ?ALT (SGPT)140-44 - IU/L?eGFR91>59 - mL/min/1.73 * Examination: G eneral Examination: GENERAL APPEARANCE: W ell developed, well nourished, in no acute distress. MUSCULOSKELETAL: N ormal. HEAD: N ormocephalic, atraumatic. EYES: P upils equal, round, reactive to light and accommodation, sclera non-icteric. EARS: N ormal. ORAL CAVITY: N ormal. THROAT: C lear. OROPHARYNX N ormal. SINUSES N ormal. NECK/THYROID: n ormal . SKIN: n ormal, good turgor, no rashes, no suspicious lesions, warm and dry . HEART: , S1, S2 normal, regular rate and rhythm no murmurs, rubs, gallops . LUNGS: , clear anteriorly and posteriorly, good air movement no wheezes, rales, rhonchi . BREASTS: _ _. ABDOMEN: S oft, nontender, nondistended, bowel sounds present, . EXTREMITIES: N ormal. PERIPHERAL PULSES: N ormal. NEUROLOGIC: N onfocal, appropriate m otor strength normal upper and lower extremities, sensory exam intact. Psychiatry N ormal. FEMALE GENITOURINARY: _ _. MALE GENITOURINARY: _ _. PODIATRIC: N ormal. Mobile Home Technician _ ____. Assessment: * Assessment: 1. P reoperative clearance - Z01.818 (Primary) 2 . E ssential (primary) hypertension - I10 3 . M ixed hyperlipidemia - E78.2 4 . O bstructive sleep apnea (adult) (pediatric) - G47.33 5 . R adiculopathy, lumbosacral region - M54.17 Mr. Tellez is a 74-year-old entleman with hypertension, hyperlipidemia ,JOSE, chronic insomnia, glaucoma, multiple joint osteoarthritis and follows up with orthopedic for intra-articular injection, personal history of prostate cancer, allergic rhinitis/seasonal allergies is here today for Preop for left knee replacement at [facility] with Dr. Walton on October 17, 2025. Plan follow Cardiac assessment. Patient can easily do 4 METS. Blood pressure and exam is within normal limits. EKG is done in the office today with a heart rate of 65 bpm, sinus rhythm. No ST elevation or depression. No bundle branch block Pulmonary assessment. Lung exam is normal. No further Intervention He does have history of obstructive sleep apnea and he is on CPAP NPO on the day of surgery. Take your medications after the surgery. Hold NSAIDs and Campbell supplement 5 days before the procedure. Low risk procedure in a low risk patient. No contraindications for the procedure at this point in time Place in order for CBC and comp to be reviewed Hypertension/hyperlipidemia. Blood pressure well controlled on lisinopril 10 mg daily and he is also on pravastatin 80 mg. Check lipid panel, renal function, electrolytes and urine albumin/creatinine ratio. Obstructive sleep apnea. He is using CPAP machine on a regular basis and no daytime sleepiness. Chronic insomnia. He is on Lunesta and trazodone 100 mg daily at bedtime and he follows up with Dr. Wolfe. Glaucoma. He stable and he follows up with office inspector on a regular basis. Degenerative disc disease/multiple joint osteoarthritis. He goes to orthopedics for intra-articular injection and we prescribe oxycodone 5/325 mg 1 tablet 2 times a day. It will be increased just for this months to 3 times a day and then after he will resume on twice a day. He is on controlled substance contract. I have spent over 20 minutes in the room with the patient. General concerns have been discussed I have rendered the services for this patient under direct supervision of Dr. Juarez, who did not see the patient but was available upon requestContent of this note has been dictated using voice recognition software. Despite multiple revisions, Errors may persist Plan: * Treatment: Value Reference Range W BC 8.8 3.4-10.8 - x10E3/uL * R BC 4.97 4.14-5.80 - x10E6/uL * H emoglobin 14.8 13.0-17.7 - g/dL * H ematocrit 45.0 37.5-51.0 - % * M CV 91 79-97 - fL * M CH 29.8 26.6-33.0 - pg * M CHC 32.9 31.5-35.7 - g/dL * R DW 12.6 11.6-15.4 - % * P latelets 217 150-450 - x10E3/uL * N eutrophils 66 Not Estab. - % * L ymphs 22 Not Estab. - % * M onocytes 7 Not Estab. - % * E os 3 Not Estab. - % * B asos 1 Not Estab. - % * N eutrophils (Absolute) 5.9 1.4-7.0 - x10E3/uL * L ymphs (Absolute) 2.0 0.7-3.1 - x10E3/uL * M onocytes(Absolute) 0.7 0.1-0.9 - x10E3/uL * E os (Absolute) 0.2 0.0-0.4 - x10E3/uL * B aso (Absolute) 0.1 0.0-0.2 - x10E3/uL * I mmature Granulocytes 1 Not Estab. - % * I mmature Grans (Abs) 0.1 0.0-0.1 - x10E3/uL * This lab was reviewed by Emmanuel Moreira on 09/30/2025 at 09:08 AM EDT ?LAB: Comp. Metabolic Panel [id number]* Value Reference Range G lucose 87 70-99 - mg/dL * B UN 20 8-27 - mg/dL * C reatinine 0.93 0.76-1.27 - mg/dL * B UN/Creatinine Ratio 22 10-24 - * S odium 140 134-144 - mmol/L * P otassium 4.0 3.5-5.2 - mmol/L * C hloride 100 96-106 - mmol/L * C arbon Dioxide, Total 24 20-29 - mmol/L * C alcium 9.4 8.6-10.2 - mg/dL * P rotein, Total 7.3 6.0-8.5 - g/dL * A lbumin 4.8 3.8-4.8 - g/dL * G lobulin, Total 2.5 1.5-4.5 - g/dL * B ilirubin, Total 0.7 0.0-1.2 - mg/dL * A lkaline Phosphatase 58 47-123 - IU/L * A ST (SGOT) 20 0-40 - IU/L * e GFR 86 >59 - mL/min/1.73 * This lab was reviewed by Emmanuel Moreira on 09/30/2025 at 09:08 AM EDT 2.?Others? Refill oxyCODONE-Acetaminophen Tablet, 5-325 MG, 1 tablet Dx: M54.17, Orally, 3 times a day As needed, 28 days, 84 Tablet, Refills 0, Notes to Pharmacist: Partial Fill upon Patient Request.? * Procedure Codes: 3 079F DIAST BP 80-89 MM [id number] SYST BP GE 130 - 139MM [id number] ELECTROCARDIOGRAM, COMPLETE * Follow Up: n ext appt * Images: Review Notes: KANDI JUAREZ 2025-09-29 13:10:32* Electronically co-signed by KANDI JUAREZ MD on 09/29/2025 at 01:10 PM EDT Sign off status: Completed Addendum: * true * Appointment Provider: Juanito Moreira Date: Generated for Jairon belle/Jignesh/Agus on: 12/04/2024 09:06 AM EST History and Physical Notes * HPI (History of Present Illness) Category Sub-Category Detail Notes Category Not es Internal Medicine Mr. Tellez is a 74-year-old gentleman with hypertension, hyperlipidemia,JOSE, chronic insomnia, glaucoma, multiple joint osteoarthritis and follows up with orthopedic for intra-articular injection, personal history of prostate cancer, allergic rhinitis/seasonal allergies is here today for PRE-OP CLEARANCE FOR TOTAL LEFT KNEE REPLACEMENT with Dr. De Los Santos at [facility] on 10/17/2025. He is able to do 4 cardiac mets without CP, SOB, GALVAN. He is not on blood thinner, he is taking omega supplement. He does not use NSAIDs. He uses CPAP. He is inquiring today about the possibility of increasing oxycodone acetaminophen to 3 times a day just for this months until he gets his surgery. No other active issues. Examination Category Sub-Category Detail Notes Category Not es General Examination GENERAL APPEARANCE: Well dev eloped, well nourished, in no acute distress HEAD: Normocephalic, atrau matic EYES: Pupils equal, round, reactive to light and accommodation, sclera non-icteric EARS: Normal THROAT: Clear NECK/THYROID: normal HEART: ,S1, S2 normal, regu lar rate and rhythm no murmurs, rubs, gallops LUNGS: ,clear anteriorly an d posteriorly, good air movement no wheezes, rales, rhonchi ABDOMEN: Soft, nontender, non distended, bowel sounds present, NEUROLOGIC: Nonfocal, appropriat e motor strength normal upper and lower extremities, sensory exam intact SKIN: normal, good turgor, no rashes, no suspicious lesions, warm and dry EXTREMITIES: Normal PERIPHERAL PULSES: Normal BREASTS: __ MUSCULOSKELETAL: Normal MALE GENITOURINARY: __ FEMALE GENITOURINARY: __ ORAL CAVITY: Normal PODIATRIC: Normal Psychiatry Normal OROPHARYNX Normal SINUSES Normal Mobile Home Technician
[2025-10-04 08:41] VITALS: BP 136/70; PULSE 64; O2SAT 96; BMI 27.3
--- NOTE | 2025-10-04 08:41 | A.OFFVIS_ITS ---
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 The patient has been CPAP therapy for many years very good effect. His current mask appears to be effective although still leak some air on the nose. The CPAP therapy has been affecting beneficial he does use it for more than 4 hours a night. He is struggling with his weight and also his sleep. He is currently being evaluated for medical weight management. He is concerned because the trazodone is making him gain weight. Is also not effective for sleep. He still staying awake for hours when he takes the trazodone when the true mg Lunesta. Prior, he was taking 4.5 mg Lunesta which appeared to be very effective for him. He denies any retrograde amnesia he has not had any problems with Lunesta that he is aware of. I did talk about his potential risks additional side effects in a did to potentials to the medication. However, he feels is the only medications that was helpful. We did also talk about other medications such as Belsomra which also be potential medications the. While taking the Lunesta the patient knows that needs to take medication holidays specially to avoid the potential side effects. 07/24/2021 the patient is here for pulmonary follow-up visit. Unfortunately, his insurance did not cover the higher dose Lunesta. Therefore he went back to the 3 mg. In the meantime he has been having difficulties with his insomnia. He has been taking 100 mg of trazodone which is partially effective. He is willing to increase it to 150 mg at this time. I am hoping that the higher dose trazodone along with 3 mg of Lunesta will be effective in providing better sleep quality. In the meantime explained to him that the medications by the cells when at work well if he does not participate in sleep behavior therapy. Otherwise he continues uses CPAP therapy. The CPAP therapy continues to be affecting beneficial. He is getting supplies regularly. He does use CPAP more than 4 hours a night. Otherwise patient is without any other complaints. He has been very excited about losing weight. His primary care doctor is helping with medical weight management which has been very effective for him and also lessening the stress on his knee joints and also on the breathing. 07/17/2022 the patient is here for pulmonary follow-up visit. He continues to struggle with his sleep. He continues on the Lunesta 3 mg at nighttime and also on trazodone 150 mg. Still, he does not respond as well as when he was taking the higher dose Lunesta. We did talk about other agents such as Belsomra. But at this point the patient does not want to change especially since he has tried medications in the past without any significant improvement. He also has been taking sildenafil at nighttime. Feels like he has a hard time sleeping after using sildenafil. He is going to try just taking half a dose of sildenafil to minimize the adverse effect. The patient has been using CPAP at nighttime. He is using the nasal pillows, P 10 with good effect. He does not like the head gear although I do feel that this is going to be the smallest had year that he will tolerate. Therefore he will continue using this mask for now. We did talk about other alternatives for CPAP including oral mandibular device. However, he did have a mandibular device that resulted in loosening of teeth and ultimately have been to have been replaced. He does continue to uses CPAP in the CPAP therapy has been affecting beneficial. He does use it for more than 4 hours a night. 10/20/2023 the patient is here for a pulmonary follow-up visit. The patient continues to have same complaints. Still having issues with sleep. He does respond partially to the Lunesta in the trazodone combination. He gets about 5- 7 hours of sleep. Although, he still wakes up drowsy in the morning. The patient has been using the CPAP. The CPAP therapy has been affecting beneficial and he does have a comfortable mask. He does get supplies from his [employer] company. The patient only complains of some andres left over by the head gear. But otherwise he tolerates it well. We did talk about considering stimulants during daytime she continues to have persistent daytime drowsiness. Although, it will result in additional polypharmacy for him. He is interested in just continuing to do what he is doing right now the seems to be providing him some relief. He is wondering about a travel CPAP. Explained to him that those are available but did not cover through insurance. I can not give her some ideas. 10/12/2024 the patient is here for a pulmonary follow-up visit. Overall he continues to do about the same. He is using the CPAP every night. CPAP therapy has been affecting beneficial. He does use [facility]. He does use a fullface mask. He is getting irritation on his nose. However he does want to change mask right now. If he continues to get worse he can always call [facility] or come here and we can help him set up with a different mask setting. The patient also has been using sleep aids. Prior she was taking 4.5 mg of Lunesta were excellent for him. Denied any evidence of any retrograde amnesia or any adverse effects. Then was no longer covered and he has been on 3 mg of Lunesta and also added trazodone to try to help with the significant severe insomnia. The patient would like to go back on the 4.5. I will send it again to see if is covered but it may not be so. In the meantime he continues to do okay from a respiratory status. He is playing golf and is also doing his yd chores. He has not had any issues with respiratory complaints. No cough or shortness breath. He does not have any imaging on record. At this point will hold off since he is doing well but if he develops any respiratory symptoms he can always call we can get additional imaging at that time. 10/04/2025 the patient is here for pulmonary follow-up visit. Overall the patient has been doing well. Although he is still struggling with the sleep. He is only getting about 4 hours if not 5. He is still wakes up tired. He was not able to get the higher dose of Lunesta. Will go ahead and increase his trazodone some from 150 mg to 175 and he can then titrate up to 200 mg no more than that. In the meantime continue with the Lunesta 3 mg. He has been using the CPAP. CPAP therapy has been affecting beneficial. He does use a fullface mask and he gets supplies through [employer]. Will go ahead and send a request for additional supplies. He does have issues with his knee. He is going to have to get likely a total knee replacement if not 2. But for now he seems to be doing well from a respiratory status and may be able to proceed from a pulmonary standpoint. Otherwise patient will come back in a year if he has any issues he can always call for an earlier assessment and recommendations. [facility] Medical History (Updated 10/04/25 @ 08:51 by Warren Wolfe MD) Pre-op chest exam JOSE on CPAP Insomnia Social History Patient Tobacco Use Status: Never used Tobacco Review of Systems Const Reports daytime sleepiness, Reports difficulty sleeping and Denies night sweats ENT Denies change in voice, Denies lip swelling, Denies mouth pain, Reports nasal congestion, Reports nasal discharge and Denies tongue swelling Card Denies chest pain Resp Reports cough GI Denies abdominal pain Musc Reports as per HPI, Reports arthralgias and Reports limited range of motion Neuro Denies Neuro-related abnormal movements Psych Denies no additional complaints Radhames/Lymph Denies easy bleeding and Denies lymphadenopathy Aller/Immun Denies lip swelling and Denies tongue swelling Physical Exam Vital Signs: Last Vital Signs Pulse 64 10/04/25 08:41 BP 136/70 10/04/25 08:41 Pulse Ox 96 10/04/25 08:41 Oxygen Delivery Method Room Air 10/04/25 08:41 BMI result Body Mass Index 27.3 Const General: alert Eyes Pupils: Equal, round and reactive pupils present Neck Neck: Yes normal visual inspection, Yes full ROM and Yes no lymphadenopathy Chest Chest palpation & inspection: normal inspection of the chest Resp Auscultation: clear to auscultation bilaterally Cardio Rate: regular rate Rhythm: regular rhythm Heart sounds: S1 normal heart sound present and S2 normal heart sound present GI Palpation (GI): Soft to palpation and nontender Auscultation: normal bowel sounds Skin General skin exam: rashes and/or lesions noted Neuro Cranial nerves: Yes Equal, round and reactive pupils present Assessment & Plan Assessment & Plan (1) Insomnia: Code(s): G47.00 - Insomnia, unspecified Category: Medical Qualifiers: Insomnia type: primary Qualified Code(s): F51.01 - Primary insomnia (2) JOSE on CPAP: Code(s): G47.33 - Obstructive sleep apnea (adult) (pediatric); Z99.89 - Dependence on other enabling machines and devices Category: Medical (3) Pre-op chest exam: Code(s): Z01.811 - Encounter for preprocedural respiratory examination Category: Medical Plan Sleep behavioral therapy increase Trazodone 150mg->175mg QHS Lunesta 3 mg QHS Continue CPAP therapy, DME is [facility] it Follow-up in 1 year sooner if he develops any worsening symptoms F/U 12 months Medications: Changed From trazodone 150 mg (3 x 50 mg) PO BEDTIME 270 tabs 3RF for insomnia To trazodone 200 mg (4 x 50 mg) PO BEDTIME 360 tabs 3RF for insomnia 90 days Coding Level of Care Code Est Pt Level 4 (60353) Complex EM visit Add On G2211 Diagnoses Primary insomnia F51.01 Insomnia type: primary JOSE on CPAP G47.33; Z99.89 Pre-op chest exam Z01.811 Time Spent (min) 17
--- OUTSIDE RECORDS SUMMARY | 2025-10-04 09:06 | XMS_ITS | Clinical Summary ---
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
--- OUTSIDE RECORDS SUMMARY | 2025-10-04 09:07 | XMS_ITS | Encounter Summary ---
Author Organization [facility] Address [address] [place] [address] Care Team Providers Care Pharmacy Billing Adjudicator Name Role Phone Jamie Hamilton MD Primary Care Provider [phone] Encounter Details Date Type Department Care Team (Late st Contact Info) Description 10/12/2024 Lab Requisition [facility] [address] [facility] [place] [phone] Dwayne Amin PA [address] [facility] [address] [place] [address] Personal history of malignant neoplasm of prostate Social History Tobacco Use Types Packs/Day Years Used Date Smoking Tobacco: Former Smokeless Tobacco: Never Alcohol Use Standard Drinks/Week Comments Yes 0 (1 standard drink = 0.6 oz pur e alcohol) Sex and Gender Information Value Date Recorded Sex Assigned at Not on file Legal Sex Male 4:54 PM EST Gender Identity Not on file Sexual Orientation Not on file documented as of this encounter Plan of Treatment Upcoming Encounters Date Type Department Care Team (Latest Contact Info) Description 10/06/2025 9:30 AM EST Consult Orthopedic Surgery - [place] [address] [facility] 250 [place] [phone] Shruti Garcia NP [address] [place] [phone] 10/17/2025 10:30 AM EST Hospital Encounter [facility] Main OR [address] [place] [phone] Diego Walton MD [address] [place] [phone] 10/17/2025 10:30 AM EST - 10/17/2025 1:30 PM EST Surgery [facility] Main OR [address] [place] [phone] Diego Walton MD [address] [place] [phone] ARTHROPLASTY KNEE TOTAL [76041 (CPT )] 11/02/2025 1:30 PM EST Office Visit Orthopedic [facility] [address] [facility] 250 [place] [phone] Shruti Garcia NP [address] [place] [phone] 01/16/2026 9:00 AM EST Office Visit [facility] 175 [facility] [address] [place] [phone] Tessa Duffy PA [address] [place] [phone] Scheduled Procedures Name Priority Associated Diagnoses Date/Ti me ARTHROPLASTY KNEE TOTAL Post-traumatic osteoarthritis of left knee 10/17/2025 10:30 AM EST documented as of this encounter Procedures Procedure Name Priority Date/Time Associated Diagnosis Comments PROSTATE SPECIFIC ANTIGEN SCREEN Routine 10/12/2024 9:51 AM EST Personal history of malignant neoplasm of prostate documented in this encounter Results * Prostate specific antigen screen (10/12/2024 9:51 AM EST) PSA <0.06 0.00 - 4.00 ng/mL LAB CHEMISTRY METHOD 10/12/2024 4:36 PM EST [facility] Blood Venous blood specimen / Unknown 10/12/2024 9:51 AM EST 10/12/2024 3:29 PM EST Narrative [facility] ([facility] - 10/12/2024 4:36 PM EST The Siemens Advia Centaur Chemiluminescent Immunoassay is used. Results obtained with different assay methods or kits cannot be used interchangeably. Results cannot be interpreted as absolute evidence of the presence or absence of malignant disease. us Dwayne AVILA LAB BLOOD ORDERABLES Final Resul t [facility] [address] [place] [address], documented in this encounter Visit Diagnoses Diagnosis Personal history of malignant neoplasm of prostate Post-traumatic osteoarthritis of left knee documented in this encounter Care Teams Pharmacy Billing Adjudicator Relationship Specialty Start Date End Date Jamie Hamilton MD [address] [place] [address] PCP - General Internal Medicine 07/15/18 documented as of this encounter
--- OUTSIDE RECORDS SUMMARY | 2025-10-04 09:07 | XMS_ITS | Clinical Summary ---
Author Organization 175 [facility] Address [address] [place] [address] Phone Care Team Providers Care Television Announcer Name Role Phone Jamie Hamilton MD Primary Care Provider [phone] Allergies Active Allergy Reactions Criticality Noted Date Comments Grass Pollen Stuffy Nose 09/27/2025 Medications biotin 5 mg capsule Take by mouth. Activ e calcium carbonate 1,500 mg (600 mg elemental calcium) tablet Take 600 mg by mouth 2 (two) times a day with meals. Active celecoxib (CeleBREX) 200 mg capsule Take 1 capsule (200 mg total) by mouth 2 (two) times a day. Active cholecalcifero l (VITAMIN D-3) 25 mcg (1,000 unit) tablet Take 2 tablets (2,000 Units total) by mouth 1 (one) time each day. Active coenzyme Q-10 10 mg capsule Take by mouth. A ctive cycloSPORINE 0.05 % drops 1 drop 2 (two) times a day. Active EPINEPHrine (EpiPen 2-Georges) 0.3 mg/0.3 mL injection Inject 0.3 mL (0.3 mg total) into the thigh if needed. 01/28/20 20 Active fluticasone propionate (FLONASE) 50 mcg/actuation nasal spray Administer 2 sprays into each nostril 1 (one) time each day. Active latanoprost (XALATAN) 0.005 % ophthalmic solution 1 drop at bedtime. at ebdtime as directed Active lisinopriL (PRINIVIL,ZEST RIL) 10 mg tablet Take 1 tablet (10 mg total) by mouth 1 (one) time each day. Active modafiniL (PROVIGIL) 100 mg tablet Take 1 tablet (100 mg total) by mouth 1 (one) time each day if needed (Sleepiness). 1-2 tabs Active olopatadine (PATADAY) 0.2 % ophthalmic solution Administer into affected eye(s). Active oxyCODONE-acet aminophen (PERCOCET) 5-325 mg per tablet Take 1 tablet by mouth 2 (two) times a day if needed for moderate pain. Active pravastatin (PRAVACHOL) 80 mg tablet Take 1 tablet (80 mg total) by mouth 1 (one) time each day. Active sildenafiL (VIAGRA) 100 mg tablet Take 1 tablet (100 mg total) by mouth if needed. Active traZODone (DESYREL) 50 mg tablet Take 3 tablets (150 mg total) by mouth at bedtime as needed for sleep. Active eszopiclone (LUNESTA) 3 mg tablet Take 1 tablet (3 mg total) by mouth at bedtime. Take immediately before bedtime Max Daily Amount: 3 mg Active multivitamin tablet Take 1 tablet by mouth 1 (one) time each day. Active ebljh-9-gye-ep a-dpa-fish oil 1,050-1,200 mg capsule Take 1,200 mg by mouth 1 (one) time each day. Active magnesium 250 mg tablet Take 250 mg by mouth 1 (one) time each day. Active hydrocortisone 2.5 % cream Apply 1 Application topically 2 (two) times a day if needed for irritation. Active olopatadine (PATANOL) 0.1 % ophthalmic solution Administer 1 drop into both eyes 2 (two) times a day. 03/07/20 20 025 Discontinued Hospital, Clinic, or Other Facility Administered Medication Ordered Dose Route Frequency Start Date End Date Status lidocaine (XYLOCAINE) 1 % injection 0.5 mLIndications:CMC arthritis .5 mL Once PRN Procedure 09/13/2025 09/13/2025 Ended triamcinolone acetonide (KENALOG-40) 40 mg/mL injection 40 mgIndications:CMC arthritis 40 mg Once PRN Procedure 09/13/2025 09/13/2025 Ended Active Problems Problem Noted Date Diagnosed Date Lumbar spondylosis 12/16/2024 Scoliosis of thoracolumbar spine 12/16/2024 Chronic midline low back pain without sciatica 0 12/16/2024 Post-traumatic osteoarthritis of left knee 09/15 Post-traumatic osteoarthritis of right knee 08/31 Pacemaker 04/14/2018 Erectile dysfunction 04/13/2018 Benign essential hypertension 09/01/2017 Dyslipidemia 09/01/2017 Obstructive sleep apnea syndrome 09/01/2017 Overview (10/25/2024): [facility] Home Polysomnogram: Date 12/07/2018; AHI 66, Unclassified apneas 53; Obstructive apneas 26; Central apneas 0; Mixed apneas 0; hypopneas 102; average oxygen saturation 92% (lowest 83% with saturations <88% for 5% or more of study) - Obstructive Sleep Apnea - severe; mostly hypopneas with unclassified and obstructive apneas; with sleep related hypoventilation by 2019 home polysomnogram. Umbilical hernia 09/01/2017 Seasonal allergic rhinitis 07/21/2017 Osteoarthritis 06/02/2017 Insomnia 05/13/2017 Acne 01/29/2017 Opioid dependence (CMS/[facility] V24, [facility] V28) 08/2016 Glaucoma 01/30/2016 Encounters Date Type Department Care Team Description 09/27/2025 Telephone Orthopedic Surgery [facility] [address] [phone] Margaret Blanco RN 09/27/2025 Telephone Orthopedic Surgery [facility] [address] [phone] Margaret Blanco RN 09/13/2025 8:30 AM EDT Office Visit Orthopedic Surgery [facility] [address] [phone] Tessa Duffy PA [facility] arthritis (Primary Dx) 09/01/2025 3:00 PM EDT Office Visit Orthopedic Surgery [facility] [address] [phone] Diego Walton MD Post-traumatic osteoarthritis of left knee (Primary Dx); Post-traumatic osteoarthritis of right knee; Chronic instability of left knee from Last 3 Months Immunizations Immunization Administration Dates Next Due Influenza trivalent, 0.5mL, preservative free (Fluarix; FluLaval; Fluzone) ages 6mo and older (Afluria) 3 years and older 09/01/2017 Pneumococcal conjugate 13 va lent (Prevnar 13, PCV13) 2mo and older 09/01/2017 Surgical History Surgery Date Site/Laterality Comments KNEE SURGERY PROCEDURE: HISTORICAL KNEE SURGERY NECK SURGERY PROCEDURE: HISTORICAL NECK SURGERY; COMMENT: cervical fusion PROSTATE SURGERY PROCEDURE: HISTORICAL PROSTATE SURGERY SINUS SURGERY KNEE CARTILAGE SURGERY Left INCISIONAL HERNIA REPAIR Medical History Medical History Date Comments Erectile dysfunction 04/13/2018 DX:Erectile dysfunction Acne 01/29/2017 DX:Acne Benign essential hypertension 09/01/2017 DX :Benign essential hypertension Dyslipidemia 09/01/2017 DX:Dyslipidemia Glaucoma 01/30/2016 DX:Glaucoma Insomnia 05/13/2017 DX:Insomnia Malignant neoplasm of prosta te ([facility] V24, [facility] V28) 01/30/2016 DX:Malignant neoplasm of pro state (HCC) Obstructive sleep apnea syndrome 09/01/2017 DX:Obstructive sleep apnea syndrome Opioid dependence ([facility] V 24, [facility] V28) 10/09/2016 DX:Opioid dependence ([facility]) Osteoarthritis 06/02/2017 DX:Osteoarthriti s Seasonal allergic rhinitis 07/21/2017 DX:Se asonal allergic rhinitis Umbilical hernia 09/01/2017 DX:Umbilical he rnia History of prostate cancer 01/30/2016 DX:Hi story of prostate cancer Cellulitis and abscess of hand Dorsalgia Somnolence Social History Tobacco Use Types Packs/Day Years Used Date Smoking Tobacco: Former Smokeless Tobacco: Never Alcohol Use Standard Drinks/Week Comments Yes 0 (1 standard drink = 0.6 oz pur e alcohol) Sex and Gender Information Value Date Recorded Sex Assigned at Not on file Legal Sex Male 4:54 PM EST Gender Identity Not on file Sexual Orientation Not on file Obstetrics History Last Filed Vital Signs Vital Sign Reading Time Taken Comments Blood Pressure - - Pulse - - Temperature - - Respiratory Rate - - Oxygen Saturation - - Inhaled Oxygen Concentration - - Weight 81.6 kg (180 lb) 09/27/2025 1:00 PM EDT Height 175.3 cm (5' 9 ) 09/27/2025 1:00 PM EDT Body Mass Index 26.58 09/27/2025 1:00 PM EDT Plan of Treatment Upcoming Encounters Date Type Department Care Team (Latest Contact Info) Description 10/06/2025 9:30 AM EST Consult Orthopedic [facility] 250 175 [facility] 250 [place] [phone] Shruti Garcia NP [address] [place] [phone] 10/17/2025 10:30 AM EST Hospital Encounter [facility] Main OR [address] [place] [phone] Diego Walton MD [address] [place] [phone] 10/17/2025 10:30 AM EST - 10/17/2025 1:30 PM EST Surgery [facility] OR [address] [place] [phone] Diego Walton MD [address] [place] [phone] ARTHROPLASTY KNEE TOTAL [48743 (CPT )] 11/02/2025 1:30 PM EST Office Visit Orthopedic [facility] [address] [phone] Shruti Garcia NP [address] [place] [phone] 01/16/2026 9:00 AM EST Office Visit Orthopedic [facility] 175 [facility] [address] [place] [phone] Tessa Duffy PA [address] [place] [phone] Scheduled Procedures Name Priority Associated Diagnoses Date/Ti me ARTHROPLASTY KNEE TOTAL Post-traumatic osteoarthritis of left knee 10/17/2025 10:30 AM EST Health Maintenance Due Date Last Done Comments Colorectal Cancer Screening: Colonoscopy 1950 DTaP,Tdap,and Td Vaccines (1 - Tdap) 1969 Hepatitis A Vaccines (1 of 2 - Risk 2-dose series) 1969 Zoster Vaccines (1 of 2) 1969 COVID-19 Vaccine (3 - Pfizer risk series) 07/29/2022 07/01/2022, 10/05/2021 Abdominal Aortic Aneurysm (AAA) Screen 10/30/2022 Cholesterol Screening (Lipid Panel) 10/30/2022 Falls Risk Assessment 10/30/2022 Hepatitis C Screening 10/30/2022 Social Influencers of Health Screening 10/30/2022 Hypertension/CHF/CAD Annual BMP Blood Test 11/16/2022 Depression Screening 12/01/2024 Influenza Vaccine (#1) 2025 , 09/04/2021, 08/22/2021, Additional history exists RSV Immunization Adult Patients (1 - 1-dose 75+ series) 2025 Pneumococcal Vaccine: 50+ Years Completed 07/05/2025, 09/01/2017 HIB Vaccines Aged Out No longer eligi ble based on patient's age to complete this topic HPV Vaccines Aged Out No longer eligi ble based on patient's age to complete this topic Hepatitis B Vaccines Aged Out No long er eligible based on patient's age to complete this topic IPV Vaccines Aged Out No longer eligi ble based on patient's age to complete this topic MMR Vaccines Aged Out No longer eligi ble based on patient's age to complete this topic Meningococcal ACWY Vaccine Aged Out N o longer eligible based on patient's age to complete this topic Meningococcal B Vaccine Aged Out No l onger eligible based on patient's age to complete this topic RSV Immunization Patients Under 20 months Aged Out No longer eligible based on patient's age to complete this topic Varicella Vaccines Aged Out No longer eligible based on patient's age to complete this topic Goals Goal Patient Goal Type Associated Problems Recent Progress Patient-Stated? Author Autogenera kamla Goal Care Plan Autogenerated Problem No Diego Walton MD Procedures Procedure Name Priority Date/Time Associated Diagnosis Comments VT ARTHROCENTESIS/ASPI RATION/INJECTION SMALL JOINT/BURSA WO U/S GUIDANCE Routine 09/13/2025 8:30 AM EDT [facility]MC arthritis from Last 3 Months Results * VT ARTHROCENTESIS/ASPIRATION/INJECTION SMALL JOINT/BURSA WO U/S GUIDANCE (09/13/2025 8:30 AM EDT) Tessa Boss PA - 09/13/2025 8:30 AM EDT [place] Miguel 09/13/2025 8:49 AM Hand / UE Inj/Asp: R thumb [facility] for osteoarthritis Indications: pain Details: 25 G needle, dorsal approach Medications: 40 mg triamcinolone acetonide 40 mg/mL; 0.5 mL lidocaine 1 % Informed Consent: Laterality: Right Relevant images/test results available and reviewed: yes Health status cleared: Yes Procedure/treatment, purpose, treatment alternatives, risks/potential complications and benefits explained: yes Risk/complications/benefits details: Risks of infection, thinning of the skin, skin discoloration discussed. Discussed the possibility of increased pain, mild redness and swelling at injection site. Discussed uncommon side effect of facial flushing after cortisone injection. Patient may use ice, Tylenol or ibuprofen if they can take it. Benefits pain management Patient questions answered: yes Patient agrees, verbalizes understanding, and wants to proceed: yes Consent given by: Patient Informed consent discussion completed by Physician/IRWIN with patient: Verbal Pre-procedure timeout performed: yes us Tessa AVILA IN CLINIC/BEDSIDE ORDERABLES Final Result from Last 3 Months Additional Health Concerns Active Problems Noted Date Diagnosed Date Autogenerated Problem 09/01/2025 Insurance [employer] Advance Directives Documents on File Type Date Recorded Patient Access Liaison Expl anation Health Care Decision (hx) 03/01/2011 AD VALENCIA DIRECTIVE Health Care Decision (hx) 03/01/2011 AD VALENCIA DIRECTIVE Health Care Decision (hx) 03/01/2011 AD VALENCIA DIRECTIVE Health Care Decision (hx) 03/01/2011 AD VALENCIA DIRECTIVE Health Care Decision (hx) 03/01/2011 AD VALENCIA DIRECTIVE Health Care Decision (hx) 03/01/2011 AD VALENCIA DIRECTIVE Health Care Decision (hx) 03/01/2011 AD VALENCIA DIRECTIVE Health Care Decision (hx) 03/01/2011 AD VALENCIA DIRECTIVE Care Teams Television Announcer Relationship Specialty Start Date End Date Jamie Hamilton MD [address] [place] [address] PCP - General Internal Medicine 07/15/18
--- OUTSIDE RECORDS SUMMARY | 2025-10-04 09:07 | XMS_ITS | Patient Health Record ---
Author Organization [employer] [facility] Address [address] [place] [address] Care Team Providers Care Zanjero Name Role Phone KANDI JUAREZ Primary Care Provider [phone] ReshmaVirgil ballesteros Unavailable [phone] Allergies Allergen (clinical drug ingredient) Drug/Non Drug Allergy documented on EMR Reaction Allergy Type Onset Date Status seasonal (uncoded) Unknown Allergy A ctive Results Component Value Reference Range Notes CBC With Differential/Platel [id number] Reviewed date:09/30/2025 09:08:34 AM Interpretation: Performing Lab:[facility], [address] [facility], [place], Phone - [phone], Director - Hang Notes/Report: WBC 8.8 3.4-10.8 [...] 0.1 0.0-0.1 x10E3/uL Comp. Metabolic Panel (13)-3 [id number] Reviewed date:09/30/2025 09:08:21 AM Interpretation: Performing Lab:[facility] [place], [address] [facility], Phone - [phone], [facility] - [facility] Notes/Report: Glucose 87 70-99 mg/dL BUN 20 [...] 47-123 IU/L AST (SGOT) 20 0-40 IU/L Comp. Metabolic Panel (14)-3 [id number] Reviewed date:08/09/2025 08:48:32 AM Interpretation: Performing Lab:[facility] [place], [address] [facility], Phone - [phone], Director - MDJoy Notes/Report: Glucose 78 70-99 mg/dL BUN 23 8-27 mg/dL Creatinine 0.87 0.76-1.27 mg/dL eGFR 91 >59 mL/min/1.73 BUN/Creatinine Ratio 26 10-24 Sodium 144 134-144 mmol/L Potassium 4.0 3.5-5.2 mmol/L Chloride 106 96-106 mmol/L Carbon Dioxide, Total 18 20-29 mmol/L Calcium 9.6 8.6-10.2 mg/dL Protein, Total 6.8 6.0-8.5 g/dL Albumin 4.7 3.8-4.8 g/dL Globulin, Total 2.1 1.5-4.5 g/dL Bilirubin, Total 1.3 0.0-1.2 mg/dL Alkaline Phosphatase 65 44-121 IU/L Effective August 15, 2025 Alkaline Phosphatase reference interval will be changing to: Age Male Female 0 - 5 days 47 - 127 47 - 127 6 - 10 days 29 - 242 29 - 242 11 - 20 days 109 - 357 109 - 357 21 - 30 days 94 - 494 94 - 494 1 - 2 months 149 - 539 149 - 539 3 - 6 months 131 - 452 131 - 452 7 - 11 months 117 - 401 117 - 401 12 months - 6 years 158 - 369 158 - 369 7 - 12 years 150 - 409 150 - 409 13 years 156 - 435 78 - 227 14 years 114 - 375 64 - 161 15 years 88 - 279 56 - 134 16 years 74 - 207 51 - 121 17 years 63 - 161 47 - 113 18 - 20 years 51 - 125 42 - 106 21 - 50 years 47 - 123 41 - 116 51 - 80 years 49 - 135 51 - 125 >80 years 48 - 129 48 - 129 AST (SGOT) 19 0-40 IU/L ALT (SGPT) 14 0-44 IU/L Lipid [id number] Reviewed date:08/09/2025 08:48:07 AM Interpretation: Performing Lab:[facility] [place], [address] [facility], [place], Phone - [phone], Director - MDJodry Notes/Report: Cholesterol, Total 218 100-199 mg/dL Triglycerides 85 0-149 mg/dL HDL Cholesterol 64 >39 mg/dL VLDL Cholesterol Shon 15 5-40 mg/dL LDL Chol Calc ([facility]) 139 0-99 mg/dL Albumin/Creatinine Ratio,Uri [id number] Reviewed date:08/09/2025 08:47:47 AM Interpretation: Performing Lab:[facility] [place], [address] [facility], [place], Phone - [phone], Director - MDJodry Notes/Report: Creatinine, Urine 177.0 Not Estab. mg/dL Albumin, Urine 6.7 Not Estab. ug/mL Alb/Creat Ratio 4 0-29 mg/g creat Normal: 0 - 29 Moderately increased: 30 - 300 Severely increased: >300 Reason For Referral Reason Evaluation and manag ement Diagnosis 1 Epidermal cyst (L72. 0) Referral Organization [facility] Referring Provider First Name Virgil Referring Provider Last Name Harish Referred Provider Specialty Dermatology General Notes Referral sent to [facility] ([address] [place] [address] [phone] ) - Office will call patient for scheduling.Di Latraya 05/17/2025 01:54:58 PM > Referral Priority Urgent Medications Medication SIG (Take, Route, Frequency, Duration) Notes Start Date End Date Status Vitamin B12 one daily Not-Taki ng Vitamin B-1 100 MG 1 tablet Orally Once a day; Duration: 30 day(s) Not-Taking BD Pen Needle Mini U/F 31G X 5 MM INJECT SAXENDA SUBCUTANEOUSLY EVERY DAY DIRECTED; Duration: 30 Not-Taking Viagra 100 MG 1 tablet as needed Orally Once a day; Duration: 30 day(s) Active Restasis 0.05 % 1 drop into affected eye Ophthalmic Once a day Active Pataday 0.2 % as directed Ophthalmic Active [place] 3 1200 MG 1 capsule Orally Once a day; Duration: 30 day(s) Active oxyCODONE-Acetaminop hen 5-325 MG 1 tablet Dx: M54.17 Orally 3 times a day; Duration: 28 days As needed Partial Fill upon Patient Request 09/29/2025 Active Latanoprost 0.005 % 1 drop into affected eye in the evening Ophthalmic Once a day Active Eszopiclone 3 MG 1 tablet immediately before bedtime Orally Once a day Dr Wolfe Active Benzonatate 200 MG 1 capsule Orally Three times a day; Duration: 7 days 01/23/2024 Not-Taking Co Q-10 200 MG 1 capsule with a meal Orally Once a day; Duration: 30 day(s) Active guaiFENesin AC 100-10 MG/5ML 10 mL as needed Orally every 8 hrs; Duration: 7 days 01/20/2024 Not-Taking Multivitamin - 1 tablet Orally Once a day (no iron) Active Saxenda 18 MG/3ML inject 3 mg Subcutaneous once a day; Duration: 30 days Not-Taking Narcan 4 MG/0.1ML PRN Overdose Nasally once; Duration: 30 days 04/16/2019 Not-Taking traZODone HCl 100 MG 1 tablet at bedtime Orally Once a day (along with a 50 mg tablet) Dr Wolfe Active Vitamin D3 2000 UNIT 1 capsule Orally Once a day; Duration: 30 day(s) Active Fluticasone Propionate 50 MCG/ACT 1 spray in each nostril Nasally Twice a day; Duration: 90 days Active Celecoxib 200 MG 2 capsules with food Orally Once a day; Duration: 90 days Active Lisinopril 10 MG TAKE 1 TABLET BY MOUTH EVERY DAY; Duration: 90 Active Pravastatin Sodium 80 MG TAKE 1 TABLET BY MOUTH EVERY DAY; Duration: 90 Active Hydrocortisone 2.5 % 1 application Externally Once a day; Duration: 30 day(s) 09/02/2022 Active Magnesium 250 MG 1 capsule with a meal Active Ecotrin Low Strength 81 MG 1 tablet Orally Once a day; Duration: 30 day(s) Not-Taking Immunizations Vaccine Route Administration Date Status Comme nts COVID Unknown 01/17/2021 Administered Pfizer COVID Unknown 02/09/2021 Administered Pfizer COVID Unknown 10/05/2021 Administered pfizer COVID Unknown 07/01/2022 Administered Pfiser Flu Unknown 10/30/2023 Administered Flu High-Dose Unknown 08/22/2021 Administered Influenza, high dose seasonal IM Intramuscular 11/11/2018 Administered Influenza, high dose seasonal IM Intramuscular 08/16/2019 Administered Influenza, high dose seasonal IM Intramuscular 08/15/2020 Administered Influenza, high dose seasonal Unknown 09/04/2021 Administered Pneumococcal conjugate PCV 13 Unknown 09/01/2017 Administered Prevnar 20 IM Intramuscular 07/05/2025 Administered Social History Tobacco Use: Social History Observation [...] drinks (0 point) Points 1 Interpretation Negative Problems Problem Type SNOMED Code ICD Code Onset Dates Problem Status W/U Status Risk Notes Problem Vitamin D deficiency (19326388) Vitamin D deficiency, unspecified (E55.9) Active confirmed Problem Obesity due to excess calories (485421269) Other obesity due to excess calories (E66.09) Active confirmed Problem Mixed hyperlipidemia (145009072) Mixed hyperlipidemia (E78.2) Active confirmed Problem Alcohol dependence (18858090) Alcohol dependence, uncomplicated (F10.20) Active confirmed Problem Insomnia (348702650) Insomnia, unspecified (G47.00) Active confirmed Problem Obstructive sleep apnea syndrome (disorder) (78813149) Obstructive sleep apnea (adult) (pediatric) (G47.33) Active confirmed Problem Glaucoma (51448174) Unspecified glaucoma (H40.9) Active confirmed Problem Allergic rhinitis caused by pollen (disorder) (99914844) Allergic rhinitis due to pollen (J30.1) Active confirmed Problem Seasonal allergic rhinitis (934473595) Other seasonal allergic rhinitis (J30.2) Active confirmed Problem Osteoarthritis (289771940) Polyosteoarthriti s, unspecified (M15.9) Active confirmed Problem Lumbosacral radiculopathy (7402677) Radiculopathy, lumbosacral region (M54.17) Active confirmed Problem Adult health examination (042300789) Encounter for general adult medical examination without abnormal findings (Z00.00) Active confirmed Problem History of malignant neoplasm of prostate (204447130) Personal history of malignant neoplasm of prostate (Z85.46) Active confirmed Problem Essential hypertension (41439697) Essential (primary) hypertension (I10) Active confirmed Vital Signs Heart Rate 72 /min 09/29/2025 Temperature 97.5 degrees Fahrenheit 09/29/2025 Blood pressure diastolic 80 mm Hg 09/29/2025 Oximetry 95 % 09/29/2025 Height 69 in 09/29/2025 Blood pressure systolic 130 mm Hg 09/29/2025 Weight 185.6 lbs 09/29/2025 BMI 27.41 kg/m2 09/29/2025 Encounters Encounter Location Date Provider Diagnosis [address] [address] 10/19/2024 CHAU GUL Radiculopathy, lumbosacral region M54.17 ; Polyosteoarthritis, unspecified M15.9 ; Essential (primary) hypertension I10 ; Mixed hyperlipidemia E78.2 and Personal history of malignant neoplasm of prostate Z85.[address] [address] 01/19/2025 Ghadeer Mazloum Radiculopathy, lumbosacral region M54.17 ; Polyosteoarthritis, unspecified M15.9 ; Essential (primary) hypertension I10 ; Mixed hyperlipidemia E78.2 and Personal history of malignant neoplasm of prostate Z85.[address] [place] [address] 04/27/2025 KANDI JUAREZ Radiculopathy, lumbosacral region M54.17 ; Polyosteoarthritis, unspecified M15.9 ; Essential (primary) hypertension I10 ; Mixed hyperlipidemia E78.2 and Personal history of malignant neoplasm of prostate Z85.[address] [place] [address] 05/17/2025 Virgil Moreira Epidermal cyst L72.[address] [place] [address] 07/05/2025 KANDI ARAIZA Encounter for genera l adult medical examination without abnormal findings Z00.00 ; Essential (primary) hypertension I10 ; Mixed hyperlipidemia E78.2 ; Obstructive sleep apnea (adult) (pediatric) G47.33 ; Radiculopathy, lumbosacral region M54.17 ; Personal history of malignant neoplasm of prostate Z85.46 and Encounter for immunization Z23 [address] [place] [address] 09/29/2025 Ghadeer Mazloum Essential (primary) hypertension I10 ; Preoperative clearance Z01.818 ; Mixed hyperlipidemia E78.2 ; Obstructive sleep apnea (adult) (pediatric) G47.33 and Radiculopathy, lumbosacral region M54.[address] [place] [address] 10/07/[address] [place] [address] 10/26/[address] [place] [address] 11/26/2024 Erroler Reshmaum [address] [place] [address] 12/22/2024 [facility] [address] [place] [address] 01/18/[address] [facility] [address] [facility] [place] [address] 02/24/2025 [facility] [address] [facility] [place] [address] 03/22/2025 [facility] [address] [facility] [place] [address] 03/29/2025 [facility] [address] [place] [address] 04/05/2025 [facility] [address] [place] [address] 04/20/2025 [facility] [address] [facility] [place] [address] 04/27/2025 [facility] [address] [place] [address] 05/16/2025 [facility] [address] [facility] [place] [address] 06/09/2025 [facility] [address] [place] [address] 07/05/2025 [facility] [address] [place] [address] 07/11/2025 [facility] [address] [facility] [place] [address] 08/05/2025 [facility] [address] [facility] [place] [address] 08/05/2025 [facility] [address] [place] [address] 09/02/2025 [facility] [address] [facility] [address] [place] [address] 09/26/2025 CH[facility] [address] [place] [address] 09/30/2025 Virgil Moreira Assessments Encounter Date Diagnosis (ICD Code) Assessment Notes Treatment Notes Treatment Clinical Notes Section Notes 10/19/2024 Radiculopathy, lumbosacral region (ICD-10 - M54.17) Mr. Tellez is a 73-year-old gentleman with dorsalgia, hypertension, hyperlipidemia and JOSE here for follow up. Plan is as follows: Hypertension. Blood pressure well controlled on Lisinopril 10 MG daily. Hyperlipidemia. Last lipid panel within normal limits. Continue Pravastatin 80 MG at night. Lumbar radiculopathy. He takes Celecoxib 100 MG 2 capsules daily and oxycodone-Acetamino phen 5/325 MG as needed. Ice the area 10-15 minutes 3-4 times a day after activity. Encouraged stretching exercises. He has controlled substance contract. no aberrant behavior. Alcohol dependence. Discussed complications of alcohol intake and advised to cut back. Overweight. He has gained 3 lbs since last visit. Advised dietary restrictions and regimental exercise. Goal is to lose 5-6 lbs a month. Advised to use calorie counter and adhere to portion control. Blood work reviewed with the patient and questions answered General health concerns discussed with patient. Scribe services used to formulate this note under HIPAA compliance and under [place] law mandated for scribe services. Patient aware of service. Verbal consent and written consent taken from the patient. Patient understands and verbalizes understanding of the scribes services and all questions answered regarding scribes services. Patient agrees to use of scribes services. 01/19/2025 Radiculopathy, lumbosacral region (ICD-10 - M54.17) Mr. Tellez is a 74-year-old gentleman with dorsalgia, hypertension, hyperlipidemia and JOSE here for follow up. Plan is as follows: Hypertension. Blood pressure well controlled on Lisinopril 10 MG daily. Hyperlipidemia. Last lipid panel within normal limits. Continue Pravastatin 80 MG at night. Lumbar radiculopathy. He takes Celecoxib 100 MG 2 capsules daily and oxycodone-Acetamino phen 5/325 MG as needed. Ice the area 10-15 minutes 3-4 times a day after activity. Encouraged stretching exercises. He has controlled substance contract. no aberrant behavior. Utox is appropriately positive for oxycodone Alcohol dependence. Discussed complications of alcohol intake and advised to cut back. Overweight. He has l;ost 2 lbs since last visit. Advised dietary restrictions and regimental exercise. Goal is to lose 5-6 lbs a month. Advised to use calorie counter and adhere to portion control. Blood work reviewed with the patient and questions answered General health concerns discussed with patient. I have rendered the services for this patient under direct supervision of Dr. Juarez, who did not see the patient but was available upon request 05/17/2025 Epidermal cyst (ICD-10 - L72.0) Mr. Tellez is a 74-year-old gentleman with dorsalgia, hypertension, hyperlipidemia and JOSE here for mole on the right knee and abdomen. Plan as follows: Epidermal cyst. As described above in the PE, it is a benign looking skin tag. Discussed liquid nitrogen with the patient, discussed that it can cause hypopigmentation, blistering, discoloration, scarring, infection. He consents with the procedure. For the skin tag on the right knee, given that it is open wound, will not perform liquid nitrogen, instead abx ointment and used and patient is advised to continue with the ointment and referred patient to dermatology for excision. HTN: Blood pressure is elevated in the office today, previously within normal limit. Advised on reducing salt intake and increase hydration. We will check BP in 4 weeks. General concerns have been discussed I have rendered the services for this patient under direct supervision of Dr. Juarez, who did not see the patient but was available upon request 07/05/2025 Encounter for general adult medical examination without abnormal findings (ICD-10 - Z00.00) Mr. Tellez is a 74-year-old gentleman with hypertension, hyperlipidemia ,JOSE, chronic insomnia, glaucoma, multiple joint osteoarthritis and follows up with orthopedic for intra-articular injection, personal history of prostate cancer, allergic rhinitis/seasonal allergies is here today for annual physical. Hypertension/hyperl ipidemia. 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 Degenerative disc disease/multiple joint osteoarthritis. He goes to orthopedics for intra-articular injection and we prescribe oxycodone 5/325 mg 1 tablet 3 times a day. He is on controlled substance contract. His urine toxicology screens are appropriately positive and negative. Personal history of prostate cancer. Last PSA was less than 0.01. He follows up with urologist. He is up-to-date on age specific screening. He is full code and his white is his healthcare proxy. 04/27/2025 Radiculopathy, lumbosacral region (ICD-10 - M54.17) Mr. Tellez is a 74-year-old gentleman with dorsalgia, hypertension, hyperlipidemia and JOSE here for follow up. Plan is as follows: Hypertension. Blood pressure well controlled on Lisinopril 10 MG daily. Hyperlipidemia. Last lipid panel within normal limits. Continue Pravastatin 80 MG at night. Lumbar radiculopathy. He takes Celecoxib 100 MG 2 capsules daily and oxycodone-Acetamino phen 5/325 MG as needed. Ice the area 10-15 minutes 3-4 times a day after activity. Encouraged stretching exercises. He has controlled substance contract. no aberrant behavior. Utox is appropriately positive for oxycodone Alcohol dependence. Discussed complications of alcohol intake and advised to cut back. Overweight. He has l;ost 3 lbs since last visit. Advised dietary restrictions and regimental exercise. Goal is to lose 5-6 lbs a month. Advised to use calorie counter and adhere to portion control. Blood work reviewed with the patient and questions answered General health concerns discussed with patient. 09/29/2025 Essential (primary) hypertension (ICD-10 - I10) Mr. Tellez is a 74-year-old gentleman with hypertension, hyperlipidemia ,JOSE, chronic insomnia, glaucoma, multiple joint osteoarthritis and follows up with orthopedic for intra-articular injection, personal history of prostate cancer, allergic rhinitis/seasonal allergies is here today for Preop for left knee replacement at [facility] with Dr. Walton on October 17, [...] medications after the surgery. Hold NSAIDs and [place] supplement 5 days before the procedure. 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 Degenerative disc disease/multiple [...] for Preop for left knee replacement at [facility] with Dr. Walton on October 17, [...] medications after the surgery. Hold NSAIDs and [place] supplement 5 days before the procedure. 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 Degenerative disc disease/multiple [...] for Preop for left knee replacement at [facility] with Dr. Walton on October 17, 2025. [...] medications after the surgery. Hold NSAIDs and [place] supplement 5 days before the procedure. 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 Degenerative disc disease/multiple [...] software. Despite multiple revisions, Errors may persist 04/27/2025 Polyosteoarthriti s, unspecified (ICD-10 - M15.9) Mr. Tellez is a 74-year-old gentleman with dorsalgia, hypertension, hyperlipidemia and JOSE here for follow up. Plan is as follows: Hypertension. Blood pressure well controlled on Lisinopril 10 MG daily. Hyperlipidemia. Last lipid panel within normal limits. Continue Pravastatin 80 MG at night. Lumbar radiculopathy. He takes Celecoxib 100 MG 2 capsules daily and oxycodone-Acetamino phen 5/325 MG as needed. Ice the area 10-15 minutes 3-4 times a day after activity. Encouraged stretching exercises. He has controlled substance contract. no aberrant behavior. Utox is appropriately positive for oxycodone Alcohol dependence. Discussed complications of alcohol intake and advised to cut back. Overweight. He has l;ost 3 lbs since last visit. Advised dietary restrictions and regimental exercise. Goal is to lose 5-6 lbs a month. Advised to use calorie counter and adhere to portion control. Blood work reviewed with the patient and questions answered General health concerns discussed with patient. 07/05/2025 Essential (primary) hypertension (ICD-10 - I10) Mr. Tellez is a 74-year-old gentleman with hypertension, hyperlipidemia ,JOSE, chronic insomnia, glaucoma, multiple joint osteoarthritis and follows up with orthopedic for intra-articular injection, personal history of prostate cancer, allergic rhinitis/seasonal allergies is here today for annual physical. Hypertension/hyperl ipidemia. 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 Degenerative disc disease/multiple joint osteoarthritis. He goes to orthopedics for intra-articular injection and we prescribe oxycodone 5/325 mg 1 tablet 3 times a day. He is on controlled substance contract. His urine toxicology screens are appropriately positive and negative. Personal history of prostate cancer. Last PSA was less than 0.01. He follows up with urologist. He is up-to-date on age specific screening. He is full code and his white is his healthcare proxy. 01/19/2025 Polyosteoarthriti s, unspecified (ICD-10 - M15.9) Mr. Tellez is a 74-year-old gentleman with dorsalgia, hypertension, hyperlipidemia and JOSE here for follow up. Plan is as follows: Hypertension. Blood pressure well controlled on Lisinopril 10 MG daily. Hyperlipidemia. Last lipid panel within normal limits. Continue Pravastatin 80 MG at night. Lumbar radiculopathy. He takes Celecoxib 100 MG 2 capsules daily and oxycodone-Acetamino phen 5/325 MG as needed. Ice the area 10-15 minutes 3-4 times a day after activity. Encouraged stretching exercises. He has controlled substance contract. no aberrant behavior. Utox is appropriately positive for oxycodone Alcohol dependence. Discussed complications of alcohol intake and advised to cut back. Overweight. He has l;ost 2 lbs since last visit. Advised dietary restrictions and regimental exercise. Goal is to lose 5-6 lbs a month. Advised to use calorie counter and adhere to portion control. Blood work reviewed with the patient and questions answered General health concerns discussed with patient. I have rendered the services for this patient under direct supervision of Dr. Juarez, who did not see the patient but was available upon request 10/19/2024 Polyosteoarthriti s, unspecified (ICD-10 - M15.9) Mr. Tellez is a 73-year-old gentleman with dorsalgia, hypertension, hyperlipidemia and JOSE here for follow up. Plan is as follows: Hypertension. Blood pressure well controlled on Lisinopril 10 MG daily. Hyperlipidemia. Last lipid panel within normal limits. Continue Pravastatin 80 MG at night. Lumbar radiculopathy. He takes Celecoxib 100 MG 2 capsules daily and oxycodone-Acetamino phen 5/325 MG as needed. Ice the area 10-15 minutes 3-4 times a day after activity. Encouraged stretching exercises. He has controlled substance contract. no aberrant behavior. Alcohol dependence. Discussed complications of alcohol intake and advised to cut back. Overweight. He has gained 3 lbs since last visit. Advised dietary restrictions and regimental exercise. Goal is to lose 5-6 lbs a month. Advised to use calorie counter and adhere to portion control. Blood work reviewed with the patient and questions answered General health concerns discussed with patient. Scribe services used to formulate this note under HIPAA compliance and under [place] law mandated for scribe services. Patient aware of service. Verbal consent and written consent taken from the patient. Patient understands and verbalizes understanding of the scribes services and all questions answered regarding scribes services. Patient agrees to use of scribes services. 10/19/2024 Essential (primary) hypertension (ICD-10 - I10) Mr. Tellez is a 73-year-old gentleman with dorsalgia, hypertension, hyperlipidemia and JOSE here for follow up. Plan is as follows: Hypertension. Blood pressure well controlled on Lisinopril 10 MG daily. Hyperlipidemia. Last lipid panel within normal limits. Continue Pravastatin 80 MG at night. Lumbar radiculopathy. He takes Celecoxib 100 MG 2 capsules daily and oxycodone-Acetamino phen 5/325 MG as needed. Ice the area 10-15 minutes 3-4 times a day after activity. Encouraged stretching exercises. He has controlled substance contract. no aberrant behavior. Alcohol dependence. Discussed complications of alcohol intake and advised to cut back. Overweight. He has gained 3 lbs since last visit. Advised dietary restrictions and regimental exercise. Goal is to lose 5-6 lbs a month. Advised to use calorie counter and adhere to portion control. Blood work reviewed with the patient and questions answered General health concerns discussed with patient. Scribe services used to formulate this note under HIPAA compliance and under [place] law mandated for scribe services. Patient aware of service. Verbal consent and written consent taken from the patient. Patient understands and verbalizes understanding of the scribes services and all questions answered regarding scribes services. Patient agrees to use of scribes services. 01/19/2025 Essential (primary) hypertension (ICD-10 - I10) Mr. Tellez is a 74-year-old gentleman with dorsalgia, hypertension, hyperlipidemia and JOSE here for follow up. Plan is as follows: Hypertension. Blood pressure well controlled on Lisinopril 10 MG daily. Hyperlipidemia. Last lipid panel within normal limits. Continue Pravastatin 80 MG at night. Lumbar radiculopathy. He takes Celecoxib 100 MG 2 capsules daily and oxycodone-Acetamino phen 5/325 MG as needed. Ice the area 10-15 minutes 3-4 times a day after activity. Encouraged stretching exercises. He has controlled substance contract. no aberrant behavior. Utox is appropriately positive for oxycodone Alcohol dependence. Discussed complications of alcohol intake and advised to cut back. Overweight. He has l;ost 2 lbs since last visit. Advised dietary restrictions and regimental exercise. Goal is to lose 5-6 lbs a month. Advised to use calorie counter and adhere to portion control. Blood work reviewed with the patient and questions answered General health concerns discussed with patient. I have rendered the services for this patient under direct supervision of Dr. Juarez, who did not see the patient but was available upon request 07/05/2025 Mixed hyperlipidemia (ICD-10 - E78.2) Mr. Tellez is a 74-year-old gentleman with hypertension, hyperlipidemia ,JOSE, chronic insomnia, glaucoma, multiple joint osteoarthritis and follows up with orthopedic for intra-articular injection, personal history of prostate cancer, allergic rhinitis/seasonal allergies is here today for annual physical. Hypertension/hyperl ipidemia. 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 Degenerative disc disease/multiple joint osteoarthritis. He goes to orthopedics for intra-articular injection and we prescribe oxycodone 5/325 mg 1 tablet 3 times a day. He is on controlled substance contract. His urine toxicology screens are appropriately positive and negative. Personal history of prostate cancer. Last PSA was less than 0.01. He follows up with urologist. He is up-to-date on age specific screening. He is full code and his white is his healthcare proxy. 04/27/2025 Essential (primary) hypertension (ICD-10 - I10) Mr. Tellez is a 74-year-old gentleman with dorsalgia, hypertension, hyperlipidemia and JOSE here for follow up. Plan is as follows: Hypertension. Blood pressure well controlled on Lisinopril 10 MG daily. Hyperlipidemia. Last lipid panel within normal limits. Continue Pravastatin 80 MG at night. Lumbar radiculopathy. He takes Celecoxib 100 MG 2 capsules daily and oxycodone-Acetamino phen 5/325 MG as needed. Ice the area 10-15 minutes 3-4 times a day after activity. Encouraged stretching exercises. He has controlled substance contract. no aberrant behavior. Utox is appropriately positive for oxycodone Alcohol dependence. Discussed complications of alcohol intake and advised to cut back. Overweight. He has l;ost 3 lbs since last visit. Advised dietary restrictions and regimental exercise. Goal is to lose 5-6 lbs a month. Advised to use calorie counter and adhere to portion control. Blood work reviewed with the patient and questions answered General health concerns discussed with patient. 09/29/2025 Obstructive sleep apnea (adult) (pediatric) (ICD-10 - G47.33) Mr. Tellez is a 74-year-old gentleman with hypertension, hyperlipidemia ,JOSE, chronic insomnia, glaucoma, multiple joint osteoarthritis and follows up with orthopedic for intra-articular injection, personal history of prostate cancer, allergic rhinitis/seasonal allergies is here today for Preop for left knee replacement at [facility] with Dr. Walton on October 17, 2025. [...] medications after the surgery. Hold NSAIDs and [place] supplement 5 days before the procedure. 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 Degenerative disc disease/multiple [...] for Preop for left knee replacement at [facility] with Dr. Walton on October 17, 2025. [...] medications after the surgery. Hold NSAIDs and [place] supplement 5 days before the procedure. 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 Degenerative disc disease/multiple [...] software. Despite multiple revisions, Errors may persist 04/27/2025 Mixed hyperlipidemia (ICD-10 - E78.2) Mr. Tellez is a 74-year-old gentleman with dorsalgia, hypertension, hyperlipidemia and JOSE here for follow up. Plan is as follows: Hypertension. Blood pressure well controlled on Lisinopril 10 MG daily. Hyperlipidemia. Last lipid panel within normal limits. Continue Pravastatin 80 MG at night. Lumbar radiculopathy. He takes Celecoxib 100 MG 2 capsules daily and oxycodone-Acetamino phen 5/325 MG as needed. Ice the area 10-15 minutes 3-4 times a day after activity. Encouraged stretching exercises. He has controlled substance contract. no aberrant behavior. Utox is appropriately positive for oxycodone Alcohol dependence. Discussed complications of alcohol intake and advised to cut back. Overweight. He has l;ost 3 lbs since last visit. Advised dietary restrictions and regimental exercise. Goal is to lose 5-6 lbs a month. Advised to use calorie counter and adhere to portion control. Blood work reviewed with the patient and questions answered General health concerns discussed with patient. 07/05/2025 Obstructive sleep apnea (adult) (pediatric) (ICD-10 - G47.33) Mr. Tellez is a 74-year-old gentleman with hypertension, hyperlipidemia ,JOSE, chronic insomnia, glaucoma, multiple joint osteoarthritis and follows up with orthopedic for intra-articular injection, personal history of prostate cancer, allergic rhinitis/seasonal allergies is here today for annual physical. Hypertension/hyperl ipidemia. 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 Degenerative disc disease/multiple joint osteoarthritis. He goes to orthopedics for intra-articular injection and we prescribe oxycodone 5/325 mg 1 tablet 3 times a day. He is on controlled substance contract. His urine toxicology screens are appropriately positive and negative. Personal history of prostate cancer. Last PSA was less than 0.01. He follows up with urologist. He is up-to-date on age specific screening. He is full code and his white is his healthcare proxy. 01/19/2025 Mixed hyperlipidemia (ICD-10 - E78.2) Mr. Tellez is a 74-year-old gentleman with dorsalgia, hypertension, hyperlipidemia and JOSE here for follow up. Plan is as follows: Hypertension. Blood pressure well controlled on Lisinopril 10 MG daily. Hyperlipidemia. Last lipid panel within normal limits. Continue Pravastatin 80 MG at night. Lumbar radiculopathy. He takes Celecoxib 100 MG 2 capsules daily and oxycodone-Acetamino phen 5/325 MG as needed. Ice the area 10-15 minutes 3-4 times a day after activity. Encouraged stretching exercises. He has controlled substance contract. no aberrant behavior. Utox is appropriately positive for oxycodone Alcohol dependence. Discussed complications of alcohol intake and advised to cut back. Overweight. He has l;ost 2 lbs since last visit. Advised dietary restrictions and regimental exercise. Goal is to lose 5-6 lbs a month. Advised to use calorie counter and adhere to portion control. Blood work reviewed with the patient and questions answered General health concerns discussed with patient. I have rendered the services for this patient under direct supervision of Dr. Juarez, who did not see the patient but was available upon request 10/19/2024 Mixed hyperlipidemia (ICD-10 - E78.2) Mr. Tellez is a 73-year-old gentleman with dorsalgia, hypertension, hyperlipidemia and JOSE here for follow up. Plan is as follows: Hypertension. Blood pressure well controlled on Lisinopril 10 MG daily. Hyperlipidemia. Last lipid panel within normal limits. Continue Pravastatin 80 MG at night. Lumbar radiculopathy. He takes Celecoxib 100 MG 2 capsules daily and oxycodone-Acetamino phen 5/325 MG as needed. Ice the area 10-15 minutes 3-4 times a day after activity. Encouraged stretching exercises. He has controlled substance contract. no aberrant behavior. Alcohol dependence. Discussed complications of alcohol intake and advised to cut back. Overweight. He has gained 3 lbs since last visit. Advised dietary restrictions and regimental exercise. Goal is to lose 5-6 lbs a month. Advised to use calorie counter and adhere to portion control. Blood work reviewed with the patient and questions answered General health concerns discussed with patient. Scribe services used to formulate this note under HIPAA compliance and under [place] law mandated for scribe services. Patient aware of service. Verbal consent and written consent taken from the patient. Patient understands and verbalizes understanding of the scribes services and all questions answered regarding scribes services. Patient agrees to use of scribes services. 10/19/2024 Personal history of malignant neoplasm of prostate (ICD-10 - Z85.46) Mr. Tellez is a 73-year-old gentleman with dorsalgia, hypertension, hyperlipidemia and JOSE here for follow up. Plan is as follows: Hypertension. Blood pressure well controlled on Lisinopril 10 MG daily. Hyperlipidemia. Last lipid panel within normal limits. Continue Pravastatin 80 MG at night. Lumbar radiculopathy. He takes Celecoxib 100 MG 2 capsules daily and oxycodone-Acetamino phen 5/325 MG as needed. Ice the area 10-15 minutes 3-4 times a day after activity. Encouraged stretching exercises. He has controlled substance contract. no aberrant behavior. Alcohol dependence. Discussed complications of alcohol intake and advised to cut back. Overweight. He has gained 3 lbs since last visit. Advised dietary restrictions and regimental exercise. Goal is to lose 5-6 lbs a month. Advised to use calorie counter and adhere to portion control. Blood work reviewed with the patient and questions answered General health concerns discussed with patient. Scribe services used to formulate this note under HIPAA compliance and under [place] law mandated for scribe services. Patient aware of service. Verbal consent and written consent taken from the patient. Patient understands and verbalizes understanding of the scribes services and all questions answered regarding scribes services. Patient agrees to use of scribes services. 01/19/2025 Personal history of malignant neoplasm of prostate (ICD-10 - Z85.46) Mr. Tellez is a 74-year-old gentleman with dorsalgia, hypertension, hyperlipidemia and JOSE here for follow up. Plan is as follows: Hypertension. Blood pressure well controlled on Lisinopril 10 MG daily. Hyperlipidemia. Last lipid panel within normal limits. Continue Pravastatin 80 MG at night. Lumbar radiculopathy. He takes Celecoxib 100 MG 2 capsules daily and oxycodone-Acetamino phen 5/325 MG as needed. Ice the area 10-15 minutes 3-4 times a day after activity. Encouraged stretching exercises. He has controlled substance contract. no aberrant behavior. Utox is appropriately positive for oxycodone Alcohol dependence. Discussed complications of alcohol intake and advised to cut back. Overweight. He has l;ost 2 lbs since last visit. Advised dietary restrictions and regimental exercise. Goal is to lose 5-6 lbs a month. Advised to use calorie counter and adhere to portion control. Blood work reviewed with the patient and questions answered General health concerns discussed with patient. I have rendered the services for this patient under direct supervision of Dr. Juarez, who did not see the patient but was available upon request 07/05/2025 Radiculopathy, lumbosacral region (ICD-10 - M54.17) Mr. Tellez is a 74-year-old gentleman with hypertension, hyperlipidemia ,JOSE, chronic insomnia, glaucoma, multiple joint osteoarthritis and follows up with orthopedic for intra-articular injection, personal history of prostate cancer, allergic rhinitis/seasonal allergies is here today for annual physical. Hypertension/hyperl ipidemia. 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 Degenerative disc disease/multiple joint osteoarthritis. He goes to orthopedics for intra-articular injection and we prescribe oxycodone 5/325 mg 1 tablet 3 times a day. He is on controlled substance contract. His urine toxicology screens are appropriately positive and negative. Personal history of prostate cancer. Last PSA was less than 0.01. He follows up with urologist. He is up-to-date on age specific screening. He is full code and his white is his healthcare proxy. 04/27/2025 Personal history of malignant neoplasm of prostate (ICD-10 - Z85.46) Mr. Tellez is a 74-year-old gentleman with dorsalgia, hypertension, hyperlipidemia and JOSE here for follow up. Plan is as follows: Hypertension. Blood pressure well controlled on Lisinopril 10 MG daily. Hyperlipidemia. Last lipid panel within normal limits. Continue Pravastatin 80 MG at night. Lumbar radiculopathy. He takes Celecoxib 100 MG 2 capsules daily and oxycodone-Acetamino phen 5/325 MG as needed. Ice the area 10-15 minutes 3-4 times a day after activity. Encouraged stretching exercises. He has controlled substance contract. no aberrant behavior. Utox is appropriately positive for oxycodone Alcohol dependence. Discussed complications of alcohol intake and advised to cut back. Overweight. He has l;ost 3 lbs since last visit. Advised dietary restrictions and regimental exercise. Goal is to lose 5-6 lbs a month. Advised to use calorie counter and adhere to portion control. Blood work reviewed with the patient and questions answered General health concerns discussed with patient. 07/05/2025 Personal history of malignant neoplasm of prostate (ICD-10 - Z85.46) Mr. Tellez is a 74-year-old gentleman with hypertension, hyperlipidemia ,JOSE, chronic insomnia, glaucoma, multiple joint osteoarthritis and follows up with orthopedic for intra-articular injection, personal history of prostate cancer, allergic rhinitis/seasonal allergies is here today for annual physical. Hypertension/hyperl ipidemia. 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 Degenerative disc disease/multiple joint osteoarthritis. He goes to orthopedics for intra-articular injection and we prescribe oxycodone 5/325 mg 1 tablet 3 times a day. He is on controlled substance contract. His urine toxicology screens are appropriately positive and negative. Personal history of prostate cancer. Last PSA was less than 0.01. He follows up with urologist. He is up-to-date on age specific screening. He is full code and his white is his healthcare proxy. 07/05/2025 Encounter for immunization (ICD-10 - Z23) Mr. Tellez is a 74-year-old gentleman with hypertension, hyperlipidemia ,JOSE, chronic insomnia, glaucoma, multiple joint osteoarthritis and follows up with orthopedic for intra-articular injection, personal history of prostate cancer, allergic rhinitis/seasonal allergies is here today for annual physical. Hypertension/hyperl ipidemia. 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 Degenerative disc disease/multiple joint osteoarthritis. He goes to orthopedics for intra-articular injection and we prescribe oxycodone 5/325 mg 1 tablet 3 times a day. He is on controlled substance contract. His urine toxicology screens are appropriately positive and negative. Personal history of prostate cancer. Last PSA was less than 0.01. He follows up with urologist. He is up-to-date on age specific screening. He is full code and his white is his healthcare proxy. Plan Of Treatment Pending Test Test Name Order Date Electrocardiogram (EKG) 08/12/2018 Ultrasound Soft Tissue Neck 02/25/2024 Next Appt Details Provider Name:KANDI JUAREZ , 11/04/2025 09:00:00 AM, [address] [place] [address] [address], [place], [address], Insurance Providers Payer Name Payer Address Payer Phone Subscriber Number Group Number Insured Name Patient Relationship to Insured Coverage Start Date Coverage End Date [employer] ([employer]) [address] [place] [address] [phone] [id number] Justo Tellez Self - patient is the insured 4 Medical (General) History Medical History History ICD Code Acne, unspecified L70.9 Dorsalgia, unspecified M54.9 Essential (primary) hypertension I10 Somnolence R40.0 Hyperlipidemia, unspecified E78.5 Unspecified glaucoma H40.9 Umbilical hernia without obstruction or gangrene K42.9 Insomnia, unspecified G47.00 Opioid dependence, uncomplicated F11.20 Obstructive sleep apnea (adult) (pediatr ic) G47.33 Unspecified osteoarthritis, unspecified site M19.90 Malignant neoplasm of prostate C61 Seasonal allergies and he sees food vendor Glaucoma and he sees his earth boring machine operator and ceo [place] Dr. Bose Status post prostate cancer Sleep Apnea Will see Dr Dumont at [facility] Personal history of COVID-19 Surgical History Surgery Date(Month/Year) cervical fusion right knee surgery prostate surgery umbilical hernia repair left knee arthroscopy Hospitalization History Reason Date(Month/Year) Bacteremia with MRSA of right hand 11/19 22
== END 2025-10-04 09:22 | disposition home or self-care (01) ==
LOC: HO.HPS 08:40
PROVIDERS: PCP Hospitalist; Visit Provider Hospitalist
DX: F51.01 Primary insomnia (principal); G47.33 Obstructive sleep apnea (adult) (pediatric); Z99.89 Dependence on other enabling machines and devices; Z01.811 Encounter for preprocedural respiratory examination
CPT/HCPCS: 99214